=== PATIENT | male | born 1950 | race Caucasian/White ===

== ENCOUNTER 2024-04-20 11:45 | Emergency (ER) | payer MEDICARE, SELFPAY ==
--- NOTE | ~2024-04-20 | XR_ITS ---
EXAMINATION: XR HUMERUS, LEFT CLINICAL INFORMATION: pain s/p fall COMPARISON: None available. TECHNIQUE: AP and lateral views of the left humerus. FINDINGS: Comminuted, displaced, and mildly angulated mid diaphyseal fracture of the humerus. There is approximately 1.0 cm of override. There is approximately 1.0 cm of anteromedial displacement of the distal fracture fragment. There is mild dorsal angulation. There is soft tissue swelling about the fracture site. No subcutaneous gas seen. XR/XR humerus LT IMPRESSION: 1. Comminuted, displaced, mildly overriding, and mildly posteriorly angulated mid diaphyseal fracture of the humerus. Electronically signed by: Charan Pretty MD 04/20/2024 01:42 PM [facility]
--- NOTE | ~2024-04-20 | XR_ITS ---
EXAMINATION: XR SHOULDER, LEFT CLINICAL INFORMATION: fall COMPARISON: None available. TECHNIQUE: AP external rotation, Grashey, scapular Y, and axillary views of the left shoulder. FINDINGS: Normal bone mineralization. No fracture, dislocation, or suspicious bone lesion. Normal alignment. Mild degenerative arthritis glenohumeral joint. Moderate superior surface spurring of the AC joint. There is a downsloping lateral acromion. No undersurface spurring. The subacromial space is preserved. Remainder of the soft tissue and bony structures appear normal. XR/XR shoulder LT min 2V IMPRESSION: No acute findings left shoulder. Electronically signed by: Charan Pretty MD 04/20/2024 01:40 PM EST
[2024-04-20 12:01] VITALS: BP 148/63; PULSE 57; RESP 20; TEMP 36.7; O2SAT 98; BMI 26.4
--- NOTE | 2024-04-20 12:04 | ED_ITS ---
HPI - Fall General Chief Complaint: Fall Stated Complaint: Arm Injury Time Seen by Provider: 04/20/24 13:26 Source: patient Mode of arrival: ambulatory Limitations: no limitations History of Present Illness ED Provider: Dr. Austen Kendall HPI Narrative: 74-year-old male with no significant past medical history, has not seen a doctor in many years who presents emergency department for evaluation of slip and fall on ice with injury to his left upper extremity. Patient states that he landed hard on his left arm. He states that he was left arm was deformed and he was able to straighten it but it would not stay straight. The patient denied any head neck or chest injury. He was currently complaining of left arm only. Related Data Previous Rx's ?Medication ?Instructions ?Recorded morphine 15 mg immediate release 15 mg PO Q8H PRN pain #15 tabs 04/20/24 tablet Allergies Allergy/AdvReac Type Severity Reaction Status Date / Time No Known Allergies Allergy Verified 04/20/24 12:05 Review of Systems 2 Review of Systems: Yes all other systems are reviewed and are negative [facility] Past Medical History [facility] Narrative: Social history: He denies tobacco use. He drinks beer occasionally. He denies drug use. Social History Social History Advance Directives: No Advance Directives Information Provided: Yes Do you have a plan to hurt others: No Plan Physical Exam 2 Vital Signs: Vital Signs: Last Vital Signs Temp 98.1 F 04/20/24 15:59 Pulse 57 04/20/24 15:59 Resp 20 04/20/24 15:59 BP 148/63 H 04/20/24 15:59 Pulse Ox 98 04/20/24 15:59 O2 Del Method Room Air 04/20/24 15:59 BMI result Body Mass Index 26.4 Exam: General: Awake, alert in no distress Head: Normocephalic, atraumatic EENT: PERRL, Lids normal, sclera normal, conjunctiva normal, nose normal , ears normal, throat without erythema or exudates Neck: Supple, no adenopathy Lung: breath sounds symmetric, no wheezing, rales or rhonchi Chest: symmetric movement, nontender Heart: regular rate and rhythm, normal S1, S2 no murmurs or rubs Abdomen: soft, non-tender, nondistended, normal bowel sounds Back: no vertebral tenderness, no CVAT Extremities: Tenderness to left mid shaft of the femur, neurovascularly intact Neuro: Awake, alert, oriented, normal speech, cranial nerves intact, moves all extremities symmetrically Psych: Pleasant, cooperative Course Course Course Narrative: This is an RME: Additional HPI, ROS, PE not included below will be deferred to primary provider. RME assessment and note performed by: Rox Brown PA-C This is a [id number]-male, with no known medical problems, who presents emergency department complaints of left arm pain status post slip and fall which occurred just prior to arrival. No head strike or LOC. Patient with obvious bony deformity noted. He was starting radial pulse. Plan: Xray humerus and shoulder Medications Administered Discontinued Medications Generic Name Dose Route Start Last Admin Trade Name José Luis PRN Reason Stop Dose Admin Morphine Sulfate 4 mg 04/20/24 13:18 04/20/24 13:26 Morphine Sulfate 4 Mg/Ml Cartridge IVPUSH 04/20/24 13:19 4 mg ONCE ONE Administration Protocol Morphine Sulfate 4 mg 04/20/24 13:54 04/20/24 14:17 Morphine Sulfate 4 Mg/Ml Cartridge IVPUSH 04/20/24 13:55 4 mg ONCE STA Administration Protocol Ondansetron HCl 4 mg 04/20/24 13:18 04/20/24 13:26 Ondansetron Hcl 4 Mg/2 Ml Vial IVPUSH 04/20/24 13:19 4 mg ONCE ONE Administration Medical Decision Making Medical Decision Making [facility] Narrative: 74-year-old male with no significant past medical history, has not seen a doctor in many years who presents emergency department for evaluation of slip and fall on ice with injury to his left upper extremity. Patient was no other complaints. Vital signs were normal. Physical examination did reveal tenderness palpation of the left upper arm, extremities neurovascular intact Differential diagnosis: ?Includes but is not limited to left humerus fracture, left arm contusion Course: My interpretation patient's laboratory evaluation is as follows: WBC elevated 13,200, H&H was normal 14.9 and 43.2. Sodium was elevated 146. Glucose elevated 154. X-ray of the patient's left humerus revealed a comminuted displaced with mildly overriding and angulated mid shaft fracture. Left shoulder x-ray revealed no acute findings. I did discuss the patient's fracture over tiger text with the covering orthopedic physician program support assistant, Johnson Luis. He recommended placing the patient in a sling, pain management and follow up as an outpatient. Patient did receive 2 doses of morphine 4 mg IV with some improvement of his pain. He was advised to take Tylenol 1000 mg 3 times a day as needed for pain and for pain not relieved by Tylenol he was prescribed morphine 15 mg every 8 hours as needed. Patient was given printed and verbal instructions and discharged home. I did tell the patient that he had has a heart murmur that will need to be evaluated prior to any surgery and that he should mention this to the orthopedic providers. Admission/Observation Consideration of admission/observation: Escalation of care including admission/observation considered (Yes) Lab Data MDM Lab Attestation statement: I reviewed the patient's lab results. 04/20/24 13:16 04/20/24 13:16 Labs: Lab Results 04/20/24 Range/Units 13:16 WBC 13.2 H (4.8-10.8) X10*3/uL RBC 4.63 (4.60-5.80) X10*6/uL Hgb 14.9 (14.0-18.0) g/dl Hct 43.2 (42.0-52.0) % MCV 93.3 (80.0-98.0) fL MCH 32.2 (27.0-33.0) pg MCHC 34.5 (31.0-36.0) g/dl RDW 14.5 (11.0-16.0) % Plt Count 187 (160-400) X10*3/uL MPV 9.8 (9.4-12.4) fL Immature Gran % (Auto) 0.6 H (0.0-0.4) % Neut % (Auto) 84.0 H (45-73) % Lymph % (Auto) 8.2 L (20-40) % Blanco % (Auto) 5.8 (2-11) % Eos % (Auto) 1.1 (0-4) % Baso % (Auto) 0.3 (0-2) % Lymph # (Auto) 1.1 L (1.2-4.9) X10*3/uL Blanco # (Auto) 0.8 (0.1-1.2) X10*3/uL Eos # (Auto) 0.1 (0.0-0.4) X10*3/uL Baso # (Auto) 0.0 (0.0-0.2) X10*3/uL Abs Immat Gran (auto) 0.08 H (0.00-0.03) X10*3/uL Absolute Neuts (auto) 11.1 H (2.0-8.3) x10*3/uL Absolute Nucleated RBC 0.000 (0.0-0.012) X10*3/uL Nucleated RBC % (auto) 0.0 (0.0-0.2) /100WBC Sodium 146 H (135-145) mmol/L Potassium 3.9 (3.3-5.1) mmol/L Chloride 108 (96-108) mmol/L Carbon Dioxide 28 (22-29) mmol/L Anion Gap 14 (12-20) BUN 13 (9-16) mg/dL Creatinine 1.15 (0.5-1.4) mg/dL Estim Creat Clear Calc 54.5 Estimated GFR > 60 Random Glucose 154 H (60-115) mg/dL Calcium 9.2 (8.4-10.2) mg/dL Total Bilirubin 0.7 (0.0-1.0) mg/dL AST 30 (5-37) U/L ALT 26 (0-40) U/L Alkaline Phosphatase 56 (39-117) U/L Total Protein 7.5 (6.5-8.0) g/dL Albumin 4.3 (3.5-5.0) g/dL Radiology Impression Discussion of test interpretation with radiology: I have reviewed the radiologist's reading. Radiologist Impression: XR HUMERUS, LEFT CLINICAL INFORMATION: pain s/p fall COMPARISON: None available. TECHNIQUE: AP and lateral views of the left humerus. FINDINGS: Comminuted, displaced, and mildly angulated mid diaphyseal fracture of the humerus. There is approximately 1.0 cm of override. There is approximately 1.0 cm of anteromedial displacement of the distal fracture fragment. There is mild dorsal angulation. There is soft tissue swelling about the fracture site. No subcutaneous gas seen. XR/XR humerus LT IMPRESSION: 1. Comminuted, displaced, mildly overriding, and mildly posteriorly angulated mid diaphyseal fracture of the humerus. Electronically signed by: Charan Pretty MD 04/20/2024 01:42 PM ES Independent Historian Clinical information obtained from an independent historian. History obtained from or confirmed by: Spouse Prescription Management I considered prescription management with: Pain Medication (Morphine IR) Chronic Conditions Patient?s care impacted by: Other (Heart murmur) Discharge Plan Discharge Clinical Impression: Fall from slipping on ice, Closed left humeral fracture, Heart murmur Patient Disposition: Home, Self-Care Instructions: Arm Fracture in Adults (ED) Additional Instructions: You broke the need the humerus bone in your upper arm You were placed in a sling and strap. Keep this on as much as possible but you can take it off to change and to washout. Apply ice to your arm in the area of the broken bone to help reduce the pain and swelling, apply the ice for 15 minutes 4 to 6 times a day for the next 2-3 days. Take Tylenol (acetaminophen) 2 pills every 6 hours as needed for pain. For pain not relieved by Tylenol take morphine 15 mg pills, 1 pill every 6 hours as needed for pain. This medication will make you sleepy, do not drive or work while taking this medication. Morphine is a narcotic medication and can be addicting. If you are concerned about addiction you can ask the pharmacist for less pills or do not get this prescription filled. Call the orthopedic doctors office tomorrow to make a follow-up appointment within 1 week. Please return to the emergency department if your symptoms get worse or if your symptoms get worse or if you develop any symptoms that are concerning to you. Prescriptions: New morphine 15 mg tablet 15 mg PO Q8H PRN (Reason: pain) Qty: 15 0RF Rx Instructions: Partial Fill upon patient request. Referrals: Elvis White MD [Physician] - (Closed comminuted fracture mid shaft left humerus needs follow-up within 1 week. Patient was not have a primary care doctor in his not seen a doctor and I long time, on exam he does have a heart murmur that may need to be evaluated prior to any surgery.) Interventions: ED Discharge Assessment Last Done: 04/20/24 15:59 Discharge Date/Time: 04/20/24 15:59 Print Language: Estonian
[2024-04-20 13:21] LABS: MANUAL DIFF FLAG NO
[2024-04-20 13:23] LABS: Basophils Percent Auto 0.3 % (0-2); Eosinophils Absolute Auto 0.1 X10*3/uL (0.0-0.4); Eosinophils Percent Auto 1.1 % (0-4); Hematocrit 43.2 % (42.0-52.0); Hemoglobin 14.9 g/dl (14.0-18.0); Imm Gran Abs Auto 0.08 X10*3/uL (0.00-0.03); Imm Gran Pct Auto 0.6 % (0.0-0.4); Lymphocytes Absolute Auto 1.1 X10*3/uL (1.2-4.9); Lymphocytes Percent Auto 8.2 % (20-40); Mean Corpuscular HGB Conc 34.5 g/dl (31.0-36.0); Mean Corpuscular Hemoglobin 32.2 pg (27.0-33.0); Mean Corpuscular Volume 93.3 fL (80.0-98.0); Mean Platelet Volume 9.8 fL (9.4-12.4); Monocytes Absolute Auto 0.8 X10*3/uL (0.1-1.2); Monocytes Percent Auto 5.8 % (2-11); Neutrophils Absolute Auto 11.1 x10*3/uL (2.0-8.3); Platelet Count 187 X10*3/uL (160-400); Red Blood Count 4.63 X10*6/uL (4.60-5.80); Red Cell Distribution Width 14.5 % (11.0-16.0); White Blood Count 13.2 X10*3/uL (4.8-10.8)
[2024-04-20] MEDS: ondansetron HCL 4 MG/2 ML VIAL IVPUSH (13:26)
[2024-04-20] MEDS: Morphine Sulfate 4 MG/ML CARTRIDGE IVPUSH ×2 (13:26→14:17)
[2024-04-20 13:40] LABS: Alanine Aminotransferase 26 U/L (0-40); Albumin Level 4.3 g/dL (3.5-5.0); Alkaline Phosphatase 56 U/L (39-117); Anion Gap 14 (12-20); Aspartate Amino Transferase 30 U/L (5-37); Bilirubin Total 0.7 mg/dL (0.0-1.0); Blood Urea Nitrogen 13 mg/dL (9-16); Calcium 9.2 mg/dL (8.4-10.2); Carbon Dioxide 28 mmol/L (22-29); Chloride 108 mmol/L (96-108); Creatinine Clr Calc Pharmacy 54.5; Estimated Glomerular Filt Rate > 60; Glucose Random 154 mg/dL (60-115); Potassium 3.9 mmol/L (3.3-5.1); Sodium 146 mmol/L (135-145); Total Protein 7.5 g/dL (6.5-8.0)
[2024-04-20 15:59] VITALS: BP 148/63; PULSE 57; RESP 20; TEMP 36.7; O2SAT 98
== END 2024-04-20 15:59 | disposition home or self-care (01) ==
PROVIDERS: Emergency Provider Emergency Medicine Emergency Medical Services
DX: S42.352A Displaced comminuted fracture of shaft of humerus, left arm, initial encounter for closed fracture (principal); W00.0XXA Fall on same level due to ice and snow, initial encounter; Y93.9 Activity, unspecified; Y92.410 Unspecified street and highway as the place of occurrence of the external cause; Y99.9 Unspecified external cause status
CPT/HCPCS: 36415; 73030; 73060; 80053; 85025; 96374; 96375; 96376; 99283; 99284; J2270; J2405

== ENCOUNTER → 2024-04-20 12:07 | Outpatient (BNV) | payer MEDICARE, SELFPAY | PROVIDERS: Emergency Provider Emergency Medicine Emergency Medical Services; PCP Internal Medicine; Visit Provider Radiology Diagnostic Radiology | DX: S42.302A Unspecified fracture of shaft of humerus, left arm, initial encounter for closed fracture (principal); W19.XXXA Unspecified fall, initial encounter | CPT/HCPCS: 73030; 73060 ==

== ENCOUNTER 2024-04-28 15:05 | Outpatient (AMB) | payer MEDICARE, SELFPAY ==
--- NOTE | 2024-04-28 15:07 | A.OFFVIS_ITS ---
Vital Signs 04/28/24 15:20 Height 5 ft 8 in Weight 173 lb BMI 26.3 Intake Visit Reasons: FC-Closed left humeral fracture, DOI 04/20/24 Intake Note: Jhon is a 74 year old right hand dominant male who presents today for a fracture care visit. Patient reports that he slipped and fell on the left upper extremity on 04/20/24. [place] [facility] [place] where he was placed in a sling. Patient reports that he is having pain and swelling. He has bruising of the arm. He has been taking Morphine which has been helping his pain. He is also taking Ibuprofen and Tylenol PRN. He has some mild numbness and tingling. Allergies No Known Allergies Allergy (Verified 04/20/24 12:05) HPI HPI FC-Closed left humeral fracture, DOI 04/20/24: Details: Jhon is a 74 year old right hand dominant male who presents today for a fracture care visit. Patient reports that he slipped and fell on the left upper extremity on 04/20/24. He was [place] [facility] [place] where he was placed in a sling. Patient reports that he is having pain and swelling. He has bruising of the arm. He has been taking Morphine which has been helping his pain. He is also taking Ibuprofen and Tylenol PRN. He has some mild numbness and tingling. [facility] Surgical History (Updated 04/28/24 @ 15:23 by Trinh Bagley CMA) Hx of appendectomy Review of Systems Const All systems reviewed & are unremarkable except as noted in HPI and below Physical Exam Vital Signs: BMI result Body Mass Index 26.3 Extrem Other: Patient's left proximal arm significantly ecchymotic to inspection There is also noted to be a deformity in the humerus at the level of the fracture No erythema or other evidence of infection noted No lacerations, abrasions, open areas No evidence of infection Patient reports mild tenderness to palpation of the left humeral shaft at the level of the fracture Patient was able to flex and extend the right wrist and digits of the right hand fully and without difficulty Distal sensation intact Capillary refill brisk Office Procedures AMB Fracture Care Details: Left humeral shaft fracture Fracture Billing Code: Fracture Billing Code Results Reviewed Results Reviewed: X-rays obtained in the office today and independently reviewed by me, Johnson Toby PA-C, demonstrate displaced fracture of the left humeral shaft with similar alignment to previous x-rays taken in the emergency department. Assessment & Plan Assessment & Plan (1) Fracture of humeral shaft, right, closed: Code(s): S42.301A - Unspecified fracture of shaft of humerus, right arm, initial encounter for closed fracture Category: Medical Plan 1. Left humeral shaft fracture Date of injury 04/20/2024 Patient is educated about this injury Patient is educated about the typical recovery course At this time, patient was placed into a thermal molded proximal humerus brace to be worn at all times except for bathing Patient was also educated he should continue using the splint for comfort and while out and about Patient is educated that while at rest, and wearing the proximal humerus brace, he can allow the arm to hang down Patient was educated to avoid any active motion away from the body with the left shoulder Patient was educated to continue working on range of motion of the left elbow, wrist, hand, to prevent stiffness Patient was amenable to this plan Patient will follow-up in 2-3 weeks with repeat x-rays for reassessment, sooner with any acute concerns Orders: Orders XR humerus LT 04/28/24 S42.309A - Unspecified fracture of shaft of humerus, u nspecified arm, initial encounter for closed fracture Coding Level of Care Code New Pt Level 3 (38810) Diagnoses Fracture of humeral shaft, right, closed S42.301A CPT Codes Fracture Care - Fracture Billing Code: Fracture Billing Code ([id number])
[2024-04-28 15:20] VITALS: BMI 26.3
== END 2024-04-28 15:47 | disposition home or self-care (01) ==
DX: S42.301A Unspecified fracture of shaft of humerus, right arm, initial encounter for closed fracture (principal)
CPT/HCPCS: 99203

== ENCOUNTER → 2024-04-28 15:05 | Outpatient (BNVA) | payer MEDICARE, SELFPAY | DX: S42.301A Unspecified fracture of shaft of humerus, right arm, initial encounter for closed fracture (principal) | CPT/HCPCS: 24500; 99202 ==

== ENCOUNTER → 2024-04-28 15:10 | Outpatient (BNV) | payer MEDICARE, SELFPAY | PROVIDERS: Visit Provider Radiology Diagnostic Radiology | DX: S43.302A Subluxation of unspecified parts of left shoulder girdle, initial encounter (principal) | CPT/HCPCS: 73060 ==

== ENCOUNTER 2024-04-29 10:20 | Outpatient (REF) | payer MEDICARE, SELFPAY ==
--- NOTE | ~2024-04-29 | XR_ITS ---
EXAMINATION: XR HUMERUS, LEFT CLINICAL INFORMATION: S42.309A - Unspecified fracture of shaft of humerus, unspecified arm, in... COMPARISON: 04/20/2024. TECHNIQUE: AP and lateral views of the left humerus. FINDINGS: Comminuted, displaced, and minimally angulated mid diaphyseal fracture of the humerus. Previously seen overriding has resolved on the current radiograph. There is no overriding. There is approximately 1 shaft width of stable anteromedial displacement of the distal fracture fragment, minimally increased although probably projectional. There is trace anteromedial angulation. Early blunting of the fracture margins with subtle periosteal bone formation. Findings indicate early healing. There is soft tissue swelling about the fracture site. No subcutaneous gas seen. XR/XR humerus LT IMPRESSION: 1. Comminuted fracture of the mid diaphysis of the humerus, with evidence of very early healing bone changes. Mildly increased displacement is probably projectional. There is no persistent override. There is trace anteromedial angulation. Electronically signed by: Charan Pretty MD 04/29/2024 08:13 AM [facility]
== END 2024-04-29 10:21 | disposition home or self-care (01) ==
LOC: HO.HOSX 10:20
DX: S42.302D Unspecified fracture of shaft of humerus, left arm, subsequent encounter for fracture with routine healing (principal)
CPT/HCPCS: 73060

== ENCOUNTER 2024-05-14 09:08 | Outpatient (REF) | payer MEDICARE, SELFPAY ==
--- NOTE | ~2024-05-14 | XR_ITS ---
CLINICAL HISTORY: S42.309A - Unspecified fracture of shaft of humerus, unspecified arm, in... 2 view left humerus Comparison: DX/[place]/SR - XR HUMERUS LT - 04/28/24 15:10 EST Findings: There is a displaced mid humeral shaft fracture now with early callus formation. No significant arthritic change. No radiopaque foreign body. IMPRESSION: There is a displaced mid humeral shaft fracture now with early callus formation. This document has been electronically signed by: Ant Guerrero MD on 05/15/2024 09:15:21
== END 2024-05-14 09:09 | disposition home or self-care (01) ==
LOC: HO.HOSX 09:08
DX: S42.302D Unspecified fracture of shaft of humerus, left arm, subsequent encounter for fracture with routine healing (principal)
CPT/HCPCS: 73060; 99212

== ENCOUNTER 2024-05-14 13:17 | Outpatient (AMB) | payer MEDICARE, SELFPAY ==
[2024-05-14 13:22] VITALS: BMI 26.3
--- NOTE | 2024-05-14 13:22 | A.OFFVIS_ITS ---
Vital Signs 05/14/24 13:22 Height 5 ft 8 in Weight 173 lb BMI 26.3 Handedness Right Intake Visit Reasons: OV- left humeral fracture, DOI 04/20/24 Intake Note: Jhon is a 74 year old right hand dominant male who presents today for a follow up of his fracture of right humeral shaft s/p fall DOI: 04/20/24. Patient was placed into a thermal molded proximal humerus brace to be worn at all times except for bathing. He was also educated that he should continue using the splint for comfort and while out and about. At rest patient was allowed to let arm hang down. He expresses he has not been allowing his arm to hang due to pain. He states he has the most pain at night time and has not been able to sleep well due to this fracture. He takes ibuprofen at night for some relief but helps mildly. Allergies No Known Allergies Allergy (Verified 05/14/24 13:28) HPI HPI OV- left humeral fracture, DOI 04/20/24: Details: Jhon is a 74 year old right hand dominant male who presents today for a follow up of his fracture of right humeral shaft s/p fall DOI: 04/20/24. Patient was placed into a thermal molded proximal humerus brace to be worn at all times except for bathing. He was also educated that he should continue using the splint for comfort and while out and about. At rest patient was allowed to let arm hang down. He expresses he has not been allowing his arm to hang due to pain. He states he has the most pain at night time and has not been able to sleep well due to this fracture. He takes ibuprofen at night for some relief but helps mildly. [facility] Surgical History (Updated 04/28/24 @ 15:23 by Trinh Bagley CMA) Hx of appendectomy Review of Systems Const All systems reviewed & are unremarkable except as noted in HPI and below Physical Exam Vital Signs: BMI result Body Mass Index 26.3 Extrem Other: Patient's left proximal arm significantly ecchymotic to inspection There is also noted to be a deformity in the humerus at the level of the fracture No erythema or other evidence of infection noted No lacerations, abrasions, open areas No evidence of infection Patient reports mild tenderness to palpation of the left humeral shaft at the level of the fracture Patient was able to flex and extend the right wrist and digits of the right hand fully and without difficulty Distal sensation intact Capillary refill brisk Results Reviewed Results Reviewed: X-rays obtained in the office today and independently reviewed by me, Johnson Luis PA-C, demonstrate displaced fracture of the left humeral shaft with similar alignment to previous x-rays Assessment & Plan Assessment & Plan (1) Fracture of humeral shaft, right, closed: Code(s): S42.301A - Unspecified fracture of shaft of humerus, right arm, initial encounter for closed fracture Category: Medical Plan 1. Left humeral shaft fracture Date of injury 04/20/2024 Patient is educated about this injury Patient is educated about the typical recovery course At this time, patient was placed into a thermal molded proximal humerus brace to be worn at all times except for bathing Patient was also educated he should continue using the splint for comfort and w hile out and about Patient is educated that while at rest, and wearing the proximal humerus brace, he can allow the arm to hang down Patient was educated to avoid any active motion away from the body with the left shoulder Patient was educated to continue working on range of motion of the left elbow, wrist, hand, to prevent stiffness Patient was amenable to this plan Patient will follow-up in 3-4 weeks with repeat x-rays for reassessment, sooner with any acute concerns Orders: Orders XR humerus RT 05/14/24 S42.301A - Unspecified fracture of shaft of humerus, right arm, initial encounter for closed fracture XR humerus LT 05/14/24 S42.309A - Unspecified fracture of shaft of humerus, unspecified arm, initial encounter for closed fracture Coding Level of Care Code Global (09183) Diagnoses Fracture of humeral shaft, right, closed S42.301A
== END 2024-05-14 14:16 | disposition home or self-care (01) ==
LOC: HO.HOS 13:17
DX: S42.301A Unspecified fracture of shaft of humerus, right arm, initial encounter for closed fracture (principal)
CPT/HCPCS: 99213

== ENCOUNTER → 2024-05-14 13:22 | Outpatient (BNV) | payer MEDICARE, SELFPAY | PROVIDERS: Visit Provider Radiology Diagnostic Radiology | DX: S42.302A Unspecified fracture of shaft of humerus, left arm, initial encounter for closed fracture (principal) | CPT/HCPCS: 73060 ==

== ENCOUNTER 2024-05-15 08:20 | Outpatient (REF) | payer MEDICARE, SELFPAY | END 2024-05-15 08:21 | disposition home or self-care (01) | LOC: HO.HOSX 08:20 | DX: Z13.89 Encounter for screening for other disorder (principal) ==

== ENCOUNTER 2024-06-04 10:39 | Outpatient (AMB) | payer MEDICARE, SELFPAY ==
--- NOTE | 2024-06-04 10:54 | MHC.OFFVIS ---
Vital Signs 06/04/24 10:55 Height 5 ft 8 in Weight 173 lb BMI 26.3 Handedness Right Intake Visit Reasons: OV- left humeral fracture, DOI 04/20/24 Intake Note: Jhon is a 74 year old right hand dominant male who presents today for a follow up vist for his fracture of humeral shaft, left, closed DOI: 04/20/24. Patient reports he uses his arm however he does not work specifically on ROM exercises. He says his entire left arm keeps swelling. He says it is hard to the touch. He says a couple of days ago he heard a pop in the left arm however had no pain. Denies numbness or tingling. Allergies No Known Allergies Allergy (Verified 06/04/24 10:55) HPI HPI OV- left humeral fracture, DOI 04/20/24: Details: Jhon is a 74 year old right hand dominant male who presents today for a follow up vist for his fracture of humeral shaft, left, closed DOI: 04/20/24. Patient reports he uses his arm however he does not work specifically on ROM exercises. He says his entire left arm keeps swelling. He says it is hard to the touch. He says a couple of days ago he heard a pop in the left arm however had no pain. Denies numbness or tingling. PFSH Surgical History (Updated 04/28/24 @ 15:23 by Trinh Bagley CMA) Hx of appendectomy Social History (Updated 06/04/24 @ 10:56 by BRANDI Proctor) Alcohol intake: current Alcohol type: beer Patient Tobacco Use Status: Never used Tobacco Current occupational status: retired Current occupation: right handed Review of Systems Const All systems reviewed & are unremarkable except as noted in HPI and below Physical Exam Vital Signs: BMI result Body Mass Index 26.3 Extrem Other: Patient's left proximal arm significantly ecchymotic to inspection There is also noted to be a deformity in the humerus at the level of the fracture There is edema of the right hand No erythema or other evidence of infection noted No lacerations, abrasions, open areas No evidence of infection Patient reports no tenderness to palpation of the left humeral shaft at the level of the fracture Patient was able to flex and extend the right wrist and digits of the right hand fully and without difficulty Distal sensation intact Capillary refill brisk Results Reviewed Results Reviewed: X-rays obtained in the office today and independently reviewed by me, Johnson Luis PA-C, demonstrate displaced fracture of the left humeral shaft with similar alignment to previous x-rays and evidence of interval bony healing Assessment & Plan Assessment & Plan (1) Fracture of humeral shaft, right, closed: Code(s): S42.301A - Unspecified fracture of shaft of humerus, right arm, initial encounter for closed fracture Category: Medical Plan 1. Left humeral shaft fracture Date of injury 04/20/2024 Patient is educated about this injury Patient is educated about the typical recovery course Patient was educated he should continue using the splint for comfort and while out and about Patient is educated that while at rest, and wearing the proximal humerus brace, he can allow the arm to hang down Patient was educated to avoid any active motion away from the body with the left shoulder Patient was educated to continue working on range of motion of the left elbow, wrist, hand, to prevent stiffness Patient was amenable to this plan Patient will follow-up in 4-5 weeks with repeat x-rays for reassessment, sooner with any acute concerns Orders: Orders XR humerus LT Today S42.309A - Unspecified fracture of shaft of humerus, unspecified arm, initial encounter for closed fracture Coding Level of Care Code Global (40069) Diagnoses Fracture of humeral shaft, right, closed S42.301A
[2024-06-04 10:55] VITALS: BMI 26.3
== END 2024-06-04 11:28 | disposition home or self-care (01) ==
LOC: HO.HOS 10:40
DX: S42.301A Unspecified fracture of shaft of humerus, right arm, initial encounter for closed fracture (principal)
CPT/HCPCS: 99213

== ENCOUNTER 2024-06-04 10:39 | Outpatient (REF) | payer MEDICARE, SELFPAY ==
--- NOTE | ~2024-06-04 | XR_ITS ---
EXAMINATION: XR HUMERUS LEFT HISTORY: S42.309A - Unspecified fracture of shaft of humerus, unspecified arm COMPARISON: Comparison is made with the prior examination dated 05/14/2024. FINDINGS: AP and lateral views of the left humerus are submitted. Osseous mineralization is normal. Again seen is a displaced fracture of the midshaft of the humerus. Callus formation is seen about the fracture site, consistent with healing. The visualized shoulder and elbow joint spaces are preserved. The soft tissues are unremarkable. XR/XR humerus LT IMPRESSION: Healing displaced fracture of the midshaft of the humerus. Electronically signed by: Wlat Solis MD 06/07/2024 08:35 AM EDT
== END 2024-06-04 10:40 | disposition home or self-care (01) ==
LOC: HO.HOSX 10:39
DX: S42.302A Unspecified fracture of shaft of humerus, left arm, initial encounter for closed fracture (principal); X58.XXXA Exposure to other specified factors, initial encounter; Y93.9 Activity, unspecified; Y92.9 Unspecified place or not applicable; Y99.9 Unspecified external cause status; M21.922 Unspecified acquired deformity of left upper arm; R60.9 Edema, unspecified
CPT/HCPCS: 73060; 99212

== ENCOUNTER → 2024-06-04 10:45 | Outpatient (BNV) | payer MEDICARE, SELFPAY | PROVIDERS: Visit Provider Radiology Diagnostic Radiology | DX: S42.302D Unspecified fracture of shaft of humerus, left arm, subsequent encounter for fracture with routine healing (principal) | CPT/HCPCS: 73060 ==

== ENCOUNTER 2024-06-05 08:12 | Outpatient (REF) | payer MEDICARE, SELFPAY | END 2024-06-05 08:13 | disposition home or self-care (01) | LOC: HO.HOSX 08:12 | DX: Z13.89 Encounter for screening for other disorder (principal) ==

== ENCOUNTER 2024-07-09 13:04 | Outpatient (AMB) | payer MEDICARE, SELFPAY ==
--- NOTE | 2024-07-09 13:21 | MHC.OFFVIS ---
Vital Signs 07/09/24 13:22 Height 5 ft 8 in Weight 173 lb BMI 26.3 Intake Visit Reasons: OV- left humeral fracture, DOI 04/20/24 Intake Note: Jhon is a 74 year old right hand dominant male who presents today for a follow up visit for his fracture of humeral shaft, left, closed DOI: 04/20/24. Patient reports that he is doing well, he has some mild discomfort mostly when the brace is adjusted too tight He has not been wearing a sling. Allergies No Known Allergies Allergy (Verified 06/04/24 10:55) HPI HPI OV- left humeral fracture, DOI 04/20/24: Details: Jhon is a 74 year old right hand dominant male who presents today for a follow up visit for his fracture of humeral shaft, left, closed DOI: 04/20/24. Patient reports that he is doing well, he has some mild discomfort mostly when the brace is adjusted too tight He has not been wearing a sling. PFSH Surgical History (Updated 04/28/24 @ 15:23 by Trinh Bagley CMA) Hx of appendectomy Social History (Updated 06/04/24 @ 10:56 by BRANDI Proctor) Alcohol intake: current Alcohol type: beer Patient Tobacco Use Status: Never used Tobacco Current occupational status: retired Current occupation: right handed Review of Systems Const All systems reviewed & are unremarkable except as noted in HPI and below Physical Exam Vital Signs: BMI result Body Mass Index 26.3 Extrem Other: Patient's left proximal arm significantly ecchymotic to inspection There is also noted to be a deformity in the humerus at the level of the fracture There is very mild edema of the right hand No erythema or other evidence of infection noted No lacerations, abrasions, open areas No evidence of infection Patient reports no tenderness to palpation of the left humeral shaft at the level of the fracture Patient was able to flex and extend the right wrist and digits of the right hand fully and without difficulty Distal sensation intact Capillary refill brisk Results Reviewed Results Reviewed: X-rays obtained in the office today and independently reviewed by me, Johnson Luis PA-C, demonstrate displaced fracture of the left humeral shaft with similar alignment to previous x-rays and evidence of interval bony healing Assessment & Plan Assessment & Plan (1) Fracture of humeral shaft, right, closed: Code(s): S42.301A - Unspecified fracture of shaft of humerus, right arm, initial encounter for closed fracture Category: Medical Plan 1. Left humeral shaft fracture Date of injury 04/20/2024 Patient is educated about this injury Patient is educated about the typical recovery course Patient was educated he should continue using the splint for comfort and while out and about Discontinue use of proximal humerus brace Patient was educated to avoid any active motion away from the body with the left shoulder Referred to occupational therapy for gentle passive range of motion and pendulums of the right shoulder, as well as gentle range of motion of the right elbow, wrist, hand Patient was educated to continue working on range of motion of the left elbow, wrist, hand, to prevent stiffness Patient was amenable to this plan Patient will follow-up in 4-6 weeks with repeat x-rays for reassessment, sooner with any acute concerns Orders: Orders XR humerus LT Today S42.309A - Unspecified fracture of shaft of humerus, unspecified arm, initial encounter for closed fracture Coding Level of Care Code Global (44284) Diagnoses Fracture of humeral shaft, right, closed S42.301A
[2024-07-09 13:22] VITALS: BMI 26.3
== END 2024-07-09 13:52 | disposition home or self-care (01) ==
LOC: HO.HOS 13:04
DX: S42.301D Unspecified fracture of shaft of humerus, right arm, subsequent encounter for fracture with routine healing (principal)
CPT/HCPCS: 99213

== ENCOUNTER 2024-07-09 13:08 | Outpatient (REF) | payer MEDICARE, SELFPAY ==
--- NOTE | ~2024-07-09 | XR_ITS ---
EXAMINATION: XR HUMERUS LEFT HISTORY: S42.309A - Unspecified fracture of shaft of humerus, unspecified arm, in... COMPARISON: Comparison is made with the prior examination dated 06/04/2024. FINDINGS: AP and lateral views of the left humerus are submitted. Osseous mineralization is normal. Again seen is a displaced fracture of the midshaft of the humerus. There is greater callus formation seen consistent with healing. The fracture line remains visible. An additional fracture line is seen at the proximal humeral metadiaphysis is nondisplaced and not significantly changed since 04/20/2024. The visualized shoulder and elbow joint spaces are preserved. The soft tissues are unremarkable. XR/XR humerus LT IMPRESSION: 1. Continued healing of the displaced fracture of the midshaft of the humerus. 2. An additional fracture line is seen involving the proximal humeral metadiaphysis which is not significantly changed from 04/20/2024. Electronically signed by: Walt Solis MD 07/09/2024 02:07 PM EDT
== END 2024-07-09 13:09 | disposition home or self-care (01) ==
LOC: HO.HOSX 13:08
DX: S42.302A Unspecified fracture of shaft of humerus, left arm, initial encounter for closed fracture (principal)
CPT/HCPCS: 73060; 99212

== ENCOUNTER → 2024-07-09 13:10 | Outpatient (BNV) | payer MEDICARE, SELFPAY | PROVIDERS: Visit Provider Radiology Diagnostic Radiology | DX: S42.322D Displaced transverse fracture of shaft of humerus, left arm, subsequent encounter for fracture with routine healing (principal) | CPT/HCPCS: 73060 ==

== ENCOUNTER 2024-07-10 10:02 | Outpatient (REF) | payer MEDICARE, SELFPAY | END 2024-07-10 10:03 | disposition home or self-care (01) | LOC: HO.HOSX 10:02 | DX: Z13.89 Encounter for screening for other disorder (principal) ==

== ENCOUNTER 2024-08-20 08:41 | Outpatient (REF) | payer MEDICARE, SELFPAY ==
--- NOTE | ~2024-08-20 | XR_ITS ---
CLINICAL HISTORY: S42.309A - Unspecified fracture of shaft of humerus, unspecified arm, in... 2 view left humerus Comparison: 07/09/2024 Findings: There is persistence of the mid humeral fracture line with callus formation consistent with healing response. The exam otherwise unchanged IMPRESSION: 1. Healing mid humeral fracture This document has been electronically signed by: William Gilliam MD on 08/21/2024 08:46:41
== END 2024-08-20 08:42 | disposition home or self-care (01) ==
LOC: HO.HOSX 08:41
DX: S42.302A Unspecified fracture of shaft of humerus, left arm, initial encounter for closed fracture (principal); X58.XXXA Exposure to other specified factors, initial encounter; Y93.9 Activity, unspecified; Y92.9 Unspecified place or not applicable; Y99.9 Unspecified external cause status
CPT/HCPCS: 73060; 99212

== ENCOUNTER 2024-08-20 13:21 | Outpatient (AMB) | payer MEDICARE, SELFPAY ==
--- NOTE | 2024-08-20 13:24 | MHC.OFFVIS ---
Vital Signs 08/20/24 13:43 Handedness Right Intake Visit Reasons: OV- left humeral fracture, DOI 04/20/24-w/xray Intake Note: Jhon is a 74 year old right hand dominant male who presents today for a follow up visit for his fracture of humeral shaft, left, closed DOI: 04/20/24. Patient has been attending therapy and reports he feels slow improvement. He is unable to make a full closed fist with his left hand. He says he feel something in the left arm or shoulder is stopping him from being able to put his hand up against his face. His partner states he has been complaining of sharp pains in the left shoulder. Denies numbness and tingling. Allergies No Known Allergies Allergy (Verified 08/20/24 13:42) HPI HPI OV- left humeral fracture, DOI 04/20/24-w/xray: Details: Jhon is a 74 year old right hand dominant male who presents today for a follow up visit for his fracture of humeral shaft, left, closed DOI: 04/20/24. Patient has been attending therapy and reports he feels slow improvement. He is unable to make a full closed fist with his left hand. He says he feel something in the left arm or shoulder is stopping him from being able to put his hand up against his face. His partner states he has been complaining of sharp pains in the left shoulder. Denies numbness and tingling. [facility] Surgical History (Updated 04/28/24 @ 15:23 by Trinh Bagley CMA) Hx of appendectomy Social History Alcohol intake: current Alcohol type: beer Patient Tobacco Use Status: Never used Tobacco Current occupational status: retired Current occupation: right handed Review of Systems Const All systems reviewed & are unremarkable except as noted in HPI and below Physical Exam Extrem Other: Patient's left proximal arm significantly ecchymotic to inspection There is also noted to be a deformity in the humerus at the level of the fracture There is very mild edema of the right hand No erythema or other evidence of infection noted No lacerations, abrasions, open areas No evidence of infection Patient reports no tenderness to palpation of the left humeral shaft at the level of the fracture Patient was able to flex and extend the right wrist and digits of the right hand fully and without difficulty Distal sensation intact Capillary refill brisk Results Reviewed Results Reviewed: X-rays obtained in the office today and independently reviewed by me, Johnson Luis PA-C, demonstrate displaced fracture of the left humeral shaft with similar alignment to previous x-rays and evidence of interval bony healing Assessment & Plan Assessment & Plan (1) Fracture of humeral shaft, right, closed: Code(s): S42.301A - Unspecified fracture of shaft of humerus, right arm, initial encounter for closed fracture Category: Medical Plan 1. Left humeral shaft fracture Date of injury 04/20/2024 Patient is educated about this injury Patient is educated about the typical recovery course Patient was educated he should continue using the splint for comfort and while out and about Discontinue use of proximal humerus brace Patient was educated to avoid any active motion away from the body with the left shoulder Referred to occupational therapy for gentle passive range of motion and pendulums of the right shoulder, as well as gentle range of motion of the right elbow, wrist, hand Patient was educated to continue working on range of motion of the left elbow, wrist, hand, to prevent stiffness Patient was amenable to this plan Patient will follow-up in 6-8 weeks with repeat x-rays for reassessment, sooner with any acute concerns Orders: Orders XR humerus LT Today S42.309A - Unspecified fracture of shaft of humerus, unspecified arm, initial encounter for closed fracture Coding Level of Care Code Est Pt Level 3 (16707) Diagnoses Fracture of humeral shaft, right, closed S42.301A
== END 2024-08-20 13:55 | disposition home or self-care (01) ==
LOC: HO.HOS 13:22
DX: S42.302A Unspecified fracture of shaft of humerus, left arm, initial encounter for closed fracture (principal)
CPT/HCPCS: 99213

== ENCOUNTER → 2024-08-20 13:27 | Outpatient (BNV) | payer MEDICARE, SELFPAY | PROVIDERS: Visit Provider Specialist | DX: S42.302D Unspecified fracture of shaft of humerus, left arm, subsequent encounter for fracture with routine healing (principal) | CPT/HCPCS: 73060 ==

== ENCOUNTER 2024-08-26 15:28 | Outpatient (RCR) | payer MEDICARE, SELFPAY ==
--- NOTE | 2024-07-16 15:36 | MHC.OT.EP ---
[address] [phone] Occupational Therapy Plan of Care Patient Name: Jhon Sandhu Date of Evaluation: 07/16/24 Diagnosis: Fx of L humeral shaft Pain Location: Pain Score: Pain Scale Used: Aggravating Factors: Alleviating Factors: ibuprofen / tylenol helps Assessment: Pt is a 74 yr old R hand dominant male who fell and fractured the shaft of his L humerus on 04/20/24 when he fell on the ice walking to the mailbox. Pt would. He had a follow up on 07/09 and had an X-ray which showed proper healing of his UE. He had a follow up w/ the PA on 07/09. Pt presents today w/ minimal and painful ROM of his L UE and he is unable to make a fist mostly due to edema in his hand. Pt would benefit from skilled OT therapy to decrease pain, edema , and increase AROM, strength, and functional use of his L UE Frequency and Duration: The patient will be seen Short Term Goals: Pt will have 150 of pain free elbow flexion Pt will have pain free 110 of shoulder flexion Pt will make a composite fist Residential Goals: Pt will have full pain free ROM of his elbow Pt will Return to driving and use his L UE W/ out difficulty Pt will have 170 of pain free shoulder flexion Treatment Plan: Therapeutic Exercise Therapeutic Activity Home Exercise Program Patient Education Edema Control ADL Training Ultrasound Fluidotherapy MHP Cold Packs Soft Tissue Mobilization Kinesiotaping Electronically Signed By: Elva Lee OTR/L Please Sign and return to therapist. Thank you once again for your referral.
--- NOTE | 2024-08-31 08:26 | MHC.OT.DC ---
[address] [phone] F: [phone] Occupational Therapy Discharge Note Patient Name: Jhon Sandhu Provider: Johnson Luis Diagnosis: Fx of L humeral shaft Date of Surgery: Date of Evaluation: 07/16/24 Date of Discharge: Treatments to Date: 11 Cancellations to Date: No Shows to Date: Discharge Status: Improved Function Independent with HEP Discharge Summary: Pt has made great gains towards his LTG's ; he has made great progress and is OK to be d/charged today w/ a HEP. Pt was educated on the importance of being compliant w/ his HEP (has not been the case since DOI) in order to reach his LTG's Electronically Signed By: Elva Lee OTR/L Reviewed/agree with student documentation: Therapist: Please Sign and return to therapist, thank you for your referral.
== END 2024-08-31 08:26 | disposition home or self-care (01) ==
LOC: HO.OT 15:28
DX: S42.301D Unspecified fracture of shaft of humerus, right arm, subsequent encounter for fracture with routine healing (principal)
CPT/HCPCS: 97110; 97140; 97166; 97535

== ENCOUNTER 2024-10-16 10:41 | Outpatient (REF) | payer MEDICARE, SELFPAY | END 2024-10-16 10:42 | disposition home or self-care (01) | LOC: HO.HOSX 10:41 | DX: Z13.89 Encounter for screening for other disorder (principal) ==

== ENCOUNTER 2024-12-29 13:55 | Emergency (ER) | payer MEDICARE, SELFPAY ==
[2024-12-29 14:08] VITALS: BP 187/80; PULSE 79; RESP 18; TEMP 36.8; O2SAT 98; BMI 27.4
--- NOTE | 2024-12-29 14:08 | ED_ITS ---
[facility] - General Adult General Chief complaint: Skin/Abscess/Foreign Body Stated complaint: bee sting? Time Seen by Provider: 12/29/24 14:09 Source: patient Mode of arrival: ambulatory Limitations: no limitations History of Present Illness ED Provider: Dr. Ware [facility] narrative: Right leg redness on the lateral aspect. Sustain possible insect bite versus staying a couple of days ago. Increased swelling. Increased redness up his calf. No fever. Not diabetic. Related Data Home Medications ?Medication ?Instructions ?Recorded ?Confirmed ibuprofen 200 mg capsule 400 mg PO Q8H PRN 05/14/24 Previous Rx's ?Medication ?Instructions ?Recorded cephalexin 500 mg capsule 500 mg PO Q8H #21 caps 12/29 doxycycline hyclate 100 mg capsule 100 mg PO BID 7 day s #14 caps 12/29/24 Allergies Allergy/AdvReac Type Severity Reaction Status Date / Time No Known Allergies Allergy Verified 12/29/24 14:12 Review of Systems Review of Systems: Pertinent review of systems as mentioned in HPI. All other system otherwise negative. [facility] Past Medical History [facility] Narrative: Medical history as mentioned in [facility] Surgical History (Updated 04/28/24 @ 15:23 by Trinh Bagley CMA) Hx of appendectomy Social History Social History Alcohol intake: current Alcohol type: beer Patient Tobacco Use Status: Never used Tobacco Advance Directives: Yes Advance Directives on File: Yes Advance Directives Date on File: 04/20/24 Current occupational status: retired Current occupation: right handed Physical Exam ED Exam Exam: General: Pleasant, no distress, interacting appropriately Head: Normacephalic, atraumatic ENT: oral mucosa moist, neck supple, no tracheal deviation Extremities: Redness over the lateral ankle area. Appear to be streaking lymphangitis no obvious stinger appreciated on exam on wound Neurological: Awake and alert, no facial droop noted Skin: Warm and dry Psychiatric: Appropriate mood and thoughts Vital Signs: Vital Signs - 24 hr 12/29/24 14:08 12/29/24 14:54 Temperature 98.2 F 98.2 F Pulse Rate 79 79 Respiratory Rate 18 18 Blood Pressure 187/80 H 187/80 H Pulse Oximetry 98 98 Oxygen Delivery Method Room Air Room Air BMI result Body Mass Index 27.4 Medical Decision Making Medical Decision Making MDM Narrative: 74-year-old male presented hospital today for redness of the right foot area. The patient stated that he was in an area where he may have got stung or bit by an insect. This happened 2 days ago. He has not complain of any. He noticed that this redness is increasing and spreading. Therefore he presents to the ER re-evaluation. On evaluation does appear to be cellulitis. No crepitus changes appreciated on exam. We will plan to discharge patient with Keflex and doxycycline. Podiatry clinic follow up will be provided the patient. Differential Diagnosis Differential Diagnoses: The differential diagnosis associated with the presentation includes Cellulitis, necrotizing fasciitis, wound, bug bite Discharge Plan Discharge Clinical Impression: Cellulitis Qualifiers: Site of cellulitis: extremity Site of cellulitis of extremity: lower extremity Laterality: right Qualified Code(s): L03.115 - Cellulitis of right lower limb Patient Disposition: Home, Self-Care Instructions: Cellulitis (ED) Prescriptions: New cephalexin 500 mg capsule 500 mg PO Q8H Qty: 21 0RF doxycycline hyclate 100 mg capsule 100 mg PO BID 7 Days Qty: 14 0RF No Action ibuprofen 200 mg capsule 400 mg PO Q8H PRN Referrals: [facility] Podiatry [Provider Group, Podiatry] Interventions: ED Discharge Assessment Last Done: 12/29/24 14:54 Discharge Date/Time: 12/29/24 14:55 Print Language: Moldovan
[2024-12-29 14:54] VITALS: BP 187/80; PULSE 79; RESP 18; TEMP 36.8; O2SAT 98
== END 2024-12-29 14:55 | disposition home or self-care (01) ==
PROVIDERS: Emergency Provider Student in an Organized Health Care Education/Training Program
DX: L03.115 Cellulitis of right lower limb (principal)
CPT/HCPCS: 99282; 99283

== ENCOUNTER 2025-01-03 14:37 | Outpatient (AMB) | payer MEDICARE, SELFPAY ==
--- NOTE | 2025-01-03 14:48 | A.OFFVIS_ITS ---
Vital Signs 01/03/25 14:49 Height 5 ft 8 in Weight 180 lb BMI 27.4 Intake Visit Reasons: Cellulitis in Right Foot - ED Discharge 12/29 Intake Note: Jhon is a 74 year old male who presents today as a new patient for an evaluation of his right foot cellulites. Patient reports the cellulites has been going on since 12/25/24 and he was seen at the ED where he was prescribed cephalexin and doxycycline. Patient reports this his cellulites has improved since taking the medication but has not fully healed. Patient has concerns if his cellulites will flare up when he completes his medication tomorrow. Allergies No Known Allergies Allergy (Verified 01/03/25 14:49) HPI HPI Cellulitis in Right Foot - ED Discharge 12/29: Details: 74-year-old male no past medical history presents for initial evaluation of right foot and ankle infection. The patient states that he first noticed a white spot on the side of his ankle on 12/25, after walking barefoot outdoors. He was seen at [facility] ER on 12/29 and was discharged on Keflex and doxycycline which the patient will be completing my tomorrow. He notes that the redness in his leg has subsided now to the level of the foot and ankle however he still has significant swelling, red discoloration to his foot, and pain to his big toe joint. Patient denies N/V/F/C/SOB/CP. [facility] Surgical History (Updated 04/28/24 @ 15:23 by Trinh Bagley CMA) Hx of appendectomy Social History Alcohol intake: current Alcohol type: beer Patient Tobacco Use Status: Never used Tobacco Advance Directives Date on File: 04/20/24 Current occupational status: retired Current occupation: right handed Review of Systems Const All systems reviewed & are unremarkable except as noted in HPI and below Physical Exam Vital Signs: BMI result Body Mass Index 27.4 Extrem Other: *Bilateral Lower Extremity Focused Exam Vascular: DP/PT 2/4, CFT<3s to all digits, mild increased warmth to the right foot and 1st Metatarsal-phalangeal joint, +1 pitting right foot and ankle edema. Derm: Erythema to the dorsal right foot from the level of the distal lateral ankle to the base of the digits. Mild discoloration to right medial ankle and arch. Neuro: Protective sensation grossly intact to bilateral lower extremities MSK: Moderate tenderness on range of motion and palpation of the right 1st Metatarsal-phalangeal joint. Assessment & Plan Assessment & Plan (1) Cellulitis of right foot: Code(s): L03.115 - Cellulitis of right lower limb Category: Medical Plan: * Discussed the etiology of his right foot infection, likely secondary to a bug bite given the history of a pustule on his foot/ankle that is no longer present. * Referred for right foot/ankle x-rays. Patient will require a right foot MRI to rule out deeper involvement of his infection and to rule out R 1st MTP joint involvement. Will consider 1st MTP joint aspiration if joint symptoms do not resolve with new antibiotic (Bactrim). * Referred to ID clinic for potential outpatient infusion if he fails oral antibiotics. * Rx Bactrim DS * The right foot cellulitis was marked using a skin marker. instructed to present to the ER if the infection worsens or spreads beyond the border, and if he notices systemic signs of infection includin N/V/F/C/SOB/CP. * Applied lidia bandage to right lower extremity to decrease edema. * Follow up in 3 days. Orders: Orders MR foot RT wo/w con Today L03.119 - Cellulitis of unspecified part of limb XR foot RT min 3V Today L03.119 - Cellulitis of unspecified part of limb XR ankle RT min 3V Today L03.115 - Cellulitis of right lower limb Referrals Infectious Disease Referral L03.115 - Cellulitis of right lower limb Medications: New sulfamethoxazole-trimethoprim 800-160 mg (Bactrim DS) Take 1 pill twice a day. 1 tab PO BID 30 tabs 0RF right foot cellulitis L03.115 - Cellulitis of right lower limb Coding Level of Care Code New Pt Level 4 (52099) Diagnoses Cellulitis of right foot L03.115 Time Spent (min) 45
[2025-01-03 14:49] VITALS: BMI 27.4
== END 2025-01-03 15:14 | disposition home or self-care (01) ==
LOC: HO.HPODS 14:38
PROVIDERS: Visit Provider Student in an Organized Health Care Education/Training Program
DX: L03.115 Cellulitis of right lower limb (principal)
CPT/HCPCS: 99204

== ENCOUNTER → 2025-01-03 14:37 | Outpatient (BNVA) | payer MEDICARE, SELFPAY | PROVIDERS: Visit Provider Student in an Organized Health Care Education/Training Program | DX: L03.115 Cellulitis of right lower limb (principal) | CPT/HCPCS: 99202 ==

== ENCOUNTER 2025-01-10 14:22 | Outpatient (AMB) | payer MEDICARE, SELFPAY ==
[2025-01-10 14:32] VITALS: BMI 27.4
--- NOTE | 2025-01-10 14:32 | A.OFFVIS_ITS ---
Vital Signs 01/10/25 14:32 Height 5 ft 8 in Weight 180 lb BMI 27.4 Intake Visit Reasons: fu toe cellulitis Intake Note: janusz is a 74 year old male who presents today for a follow up on his cellulites of his right foot. During his last visit he was provided with a post op shoe and he was prescribed antibiotics. Patient reports he has seen slight improvement in regards to the swelling, and skin redness. Patient reports he would like to discuss how long it takes for his cellulites to heal. Allergies No Known Allergies Allergy (Verified 01/10/25 14:33) HPI HPI fu toe cellulitis: Details: 74-year-old male no past medical history presents for 1 week follow up evaluation of right foot and ankle infection. He notes improvement in his swelling and pain. The patient started the oral antibiotics prescribed last visit the same day, no issues so far. He is also taking a probiotic with it. He has not been applying the Lidia bandage. He attempted a compression stocking however felt it to be too uncomfortable. History: The patient states that he first noticed a white spot on the side of his ankle on 12/25, after walking barefoot outdoors. He was seen at [facility] ER on 12/29 and was discharged on Keflex and doxycycline which the patient will be completing my tomorrow. He notes that the redness in his leg has subsided now to the level of the foot and ankle however he still has significant swelling, red discoloration to his foot, and pain to his big toe joint. Patient denies N/V/F/C/SOB/CP. PFSH Surgical History (Updated 04/28/24 @ 15:23 by Trinh Bagley CMA) Hx of appendectomy Social History Alcohol intake: current Alcohol type: beer Patient Tobacco Use Status: Never used Tobacco Advance Directives Date on File: 04/20/24 Current occupational status: retired Current occupation: right handed Review of Systems Const All systems reviewed & are unremarkable except as noted in HPI and below Physical Exam Vital Signs: BMI result Body Mass Index 27.4 Extrem Other: *Bilateral Lower Extremity Focused Exam Vascular: DP/PT 2/4, CFT<3s to all digits, mild increased warmth to the right foot, +1 pitting right foot edema. No ankle edema. Derm: Decreased, mild erythema to the dorsal right foot from the level of the distal lateral ankle to the base of the digits. Decreased but mild discoloration to right medial ankle and arch. Neuro: Protective sensation grossly intact to bilateral lower extremities MSK: No tenderness on range of motion and palpation of the right 1st Metatarsal-phalangeal joint. Assessment & Plan Assessment & Plan (1) Cellulitis of right foot: Code(s): L03.115 - Cellulitis of right lower limb Category: Medical Plan: * Discussed the etiology of his right foot infection, likely secondary to a bug bite given the history of a pustule on his foot/ankle that is no longer present. * Instructed the patient to receive his right foot and ankle x-rays. His MRI order still outstanding. If his symptoms improve, we may consider cancelling his MRI. * Complete Bactrim antibiotic prescribed last visit * Instructed to present to the ER if the infection worsens or spreads beyond the border, and if he notices systemic signs of infection includin N/V/F/C/SOB/CP. * Applied lidia bandage to right lower extremity to decrease edema. * Follow up in 1 week. Coding Level of Care Code Est Pt Level 3 (28151) Diagnoses Cellulitis of right foot L03.115 Time Spent (min) 25
== END 2025-01-10 14:48 | disposition home or self-care (01) ==
PROVIDERS: Visit Provider Student in an Organized Health Care Education/Training Program
DX: L03.115 Cellulitis of right lower limb (principal)
CPT/HCPCS: 99213

== ENCOUNTER 2025-01-10 14:22 | Outpatient (REF) | payer MEDICARE, SELFPAY ==
--- NOTE | ~2025-01-10 | XR_ITS ---
EXAMINATION: XR ANKLE, right CLINICAL INFORMATION: L03.115 - Cellulitis of right lower limb COMPARISON: None available. TECHNIQUE: AP, lateral, and mortise views lower extremity joint, ankle. FINDINGS: Ankle mortise is congruent. There is no widening of the syndesmosis. Talar dome is intact. There are small Achilles tendon and plantar fascial calcaneal enthesophyte(s). XR/XR ankle RT min 3V IMPRESSION: Unremarkable ankle x-ray. Electronically signed by: Ishmael Smart MD 01/10/2025 03:54 PM EST
--- NOTE | ~2025-01-10 | XR_ITS ---
EXAMINATION: XR FOOT, RIGHT CLINICAL INFORMATION: L03.119 - Cellulitis of unspecified part of limb COMPARISON: None available. TECHNIQUE: AP, lateral, and oblique views of the right foot. FINDINGS: There is moderate narrowing of the first MTP joint with subchondral sclerosis and osteophytes. There is also degenerative cystic change. There is likely soft tissue swelling around the first MTP joint. Moderate atherosclerotic calcifications are present. There are small calcaneal spurs at the plantar fascia and Achilles tendon attachments. No definite acute erosions are identified. XR/XR foot RT min 3V IMPRESSION: Moderate first MTP joint osteoarthritis. Suspected soft tissue swelling around the first MTP joint. Electronically signed by: Ishmael Smart MD 01/10/2025 03:53 PM [facility]
== END 2025-01-10 14:23 | disposition home or self-care (01) ==
LOC: HO.HMGCX 14:22
PROVIDERS: Visit Provider Student in an Organized Health Care Education/Training Program
DX: L03.115 Cellulitis of right lower limb (principal)
CPT/HCPCS: 73610; 73630; 99212

== ENCOUNTER → 2025-01-10 15:26 | Outpatient (BNV) | payer MEDICARE, SELFPAY | PROVIDERS: Visit Provider Radiology Diagnostic Radiology | DX: L03.115 Cellulitis of right lower limb (principal); M19.071 Primary osteoarthritis, right ankle and foot | CPT/HCPCS: 73610; 73630 ==

== ENCOUNTER 2025-01-15 18:16 | Inpatient (IN) | payer MEDICARE, SELFPAY ==
[2025-01-15] VITALS (7 sets, daily range): BP systolic 122–150; BP diastolic 58–78; PULSE 83–96; RESP 16–28; TEMP 36.9–38.5; O2SAT 95–100; BMI 27.4
--- NOTE | ~2025-01-15 | XR_ITS ---
CLINICAL HISTORY: infection osteo? 3 view right foot Comparison: CR/SR - XR FOOT 3 OR MORE VIEWS RIGHT - 01/10/2025 03:44 PM EST Findings: No acute osseous abnormality. No cortical erosions. Osteoarthritis of the 1st toe metatarsophalangeal joint. No radiopaque foreign body. IMPRESSION: No radiographic evidence for osteomyelitis. If there is persistent clinical concern, consider a MRI. This document has been electronically signed by: Stephy Marti MD on 01/16/2025 00:05:00
--- NOTE | ~2025-01-15 | XR_ITS ---
CLINICAL HISTORY: SOB 2 view chest x-ray. Comparison: None provided Findings: Heart size is normal. No consolidation or effusion. No acute fracture. The visualized upper abdomen is unremarkable. Impression: No acute cardiopulmonary process. This document has been electronically signed by: Stephy Marti MD on 01/15/2025 19:07:11
--- NOTE | ~2025-01-15 | CT_ITS ---
CLINICAL HISTORY: renal obstruction? has ANNE, signs of sepsis CT abdomen and pelvis without contrast Comparison: None provided Absence of IV contrast limits evaluation of the organs and vasculature. Findings: Lung bases: Small pericardial effusion. Aortic valve calcifications. Coronary artery calcifications. Subsegmental atelectasis of the right lobe. Liver: No focal lesions. No biliary ductal dilatation. Gallbladder: Noninflamed gallbladder. Spleen: Normal. Pancreas: Unremarkable. Adrenal glands: No nodules. Kidneys: No hydronephrosis. 5 mm nonobstructing stone in the right kidney. Pelvic organs: Normal. Peritoneum and Gastrointestinal: No bowel obstruction, pneumoperitoneum, or ascites. Colonic diverticulosis without acute diverticulitis. Lymph nodes: No lymphadenopathy. Vessels: Atherosclerosis. Bones and soft tissues: Small fat containing umbilical hernia. IMPRESSION: No acute CT findings of the abdomen or pelvis. This document has been electronically signed by: Stephy Marti MD on 01/15/2025 22:20:58
--- NOTE | 2025-01-15 18:25 | ED_ITS ---
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 Patient was seen by Podiatry 2 weeks ago after having been bitten by a suspect spider. The patient developed cellulitis, he has been on oral antibiotics, his progress has been followed by his industrial gas production operator. Patient developed chills, generalized malaise, shaking rigors with a cough, and poor oral intake over the past day. Patient states that the cellulitis over the right lower extremity seems to have improved. There are no open wounds of the right foot. Denies dysuria, nausea vomiting diarrhea, abdominal pain, chest pain or shortness of breath. No sick contacts with viral symptoms. No documented fever. Related Data Home Medications ?Medication ?Instructions ?Recorded ?Confirmed ibuprofen 200 mg capsule 400 mg PO Q8H PRN 05/14/24 Previous Rx's ?Medication ?Instructions ?Recorded cephalexin 500 mg capsule 500 mg PO Q8H #21 caps 12/29 doxycycline hyclate 100 mg capsule 100 mg PO BID 7 day s #14 caps 12/29/24 sulfamethoxazole 800 1 tab PO BID right foot cell ulitis 01/03/25 mg-trimethoprim 160 mg tablet #30 tabs (Bactrim DS) Allergies Allergy/AdvReac Type Severity Reaction Status Date / Time No Known Allergies Allergy Verified 01/15/25 18:28 Review of Systems 2 Review of Systems: Yes all other systems are reviewed and are negative Constitutional: Constitutional: Reports chills, Reports fatigue, Denies fever(s) and Reports malaise Cardiovascular: Cardiovascular: Denies chest pain and Denies dyspnea Respiratory: Respiratory: Reports cough, Denies dyspnea and Denies wheezing Gastrointestinal: Gastrointestinal: Denies abdominal pain, Denies diarrhea, Denies nausea and Denies vomiting Genitourinary: Genitourinary: Denies dysuria Endocrine: Endocrine: Reports fatigue Allergic/Immunologic: Allergic/Immunologic: Denies wheezing PMFSH Past Medical History Attestation statement: The following information was validated with the patient. Surgical History (Updated 04/28/24 @ 15:23 by Trinh Bagley CMA) Hx of appendectomy Social History Social History Alcohol intake: current Alcohol intake frequency: does not drink Alcohol type: beer Patient Tobacco Use Status: Never used Tobacco Smoked in Last 30 Days: No Use of substances other than those prescribed or required for medical reasons: No Advance Directives: Yes Advance Directives on File: Yes Advance Directives Date on File: 04/20/24 Current occupational status: retired Current occupation: right handed Physical Exam 2 Vital Signs: Vital Signs: Last Vital Signs Temp 101.3 F H 01/15/25 23:28 Pulse 90 01/16/25 00:01 Resp 27 H 01/16/25 00:01 BP 126/65 01/16/25 00:01 Pulse Ox 95 01/16/25 00:01 O2 Del Method Room Air 01/16/25 00:01 BMI result Body Mass Index 27.4 Const: Other: Alert Orientation/consciousness: patient oriented x3 Resp: Other: Basilar crackles right lung posterior cabrera no wheezing nonlabored respiration Cardio: Other: Normal peripheral perfusion Skin: Other: Warm dry no rash Neuro: Other: Walks with a an antalgic gait, it is supposed to use either a cane or a walker at baseline General: patient oriented x3, no focal motor deficits and CN's II-XI intact bilaterally Extrem: Other: Region of erythema over the dorsum of the right foot spans mid foot to just inferior to the ankle, no associated edema noted Psych: Other: Cooperative Course Course Course Narrative: Lorenawendy Gottlieb [employer] 01/15 1826 This is a rapid medical exam. Deferred additional HPI, ROS, PE to primary provider. 74 yo male healthy on an bactrim for right foot cellulitis, here with shortness of breath/fevers/chills, continued pain in foot. Had outpatient x-ray on 01/10 Will obtain labs, UA, CXR, viral testing VSS Reevaluation(s) Reevaluation #1: A 2040January 15, a sepsis focused exam was performed, the patient has a evidence of acute kidney injury, with the hyperkalemia, his initial lactic is elevated at 2.7, to note his vitals are currently stable, he is not febrile at this time, he is not tachycardic. Starting weight based IV fluid therapy, empiric ceftriaxone, blood cultures were also already collected. Time: 20:41 Reevaluation #2: Patient febrile to 100.2, repeat lactic 3.4, he has received his weight based IV fluid therapy, his vitals remained stable, his pressure is 141 ordered 64, he is not tachy, we will obtain a 3rd lactic before admitting, a sources yet to be identified. CT abdomen and pelvis came back in his negative, urine not infected, Reevaluation #3: Third lactic 1.0 Medications Administered Discontinued Medications Generic Name Dose Route Start Last Admin Trade Name Freq PRN Reason Stop Dose Admin Acetaminophen 975 mg 01/15/25 23:30 01/15/25 23:35 Acetaminophen 325 Mg Tablet PO 01/15/25 23:31 975 mg ONCE ONE Administration Lactated Ringer's 2,449.41 mls @ 2,449.41 mls/hr 01/15/25 20:41 01/15/25 22:29 Lr 30 ml/kg infuse over 1 hr (2449.41 ml) 01/15/25 21:40 Infused IV Infusion .Q1H ONE Ceftriaxone Sodium 2 gm/ 50 mls @ 100 mls/hr 01/15/25 20:41 01/15/25 21:30 Sodium Chloride IV 01/15/25 21:10 Infused ONCE ONE Infusion Calcium Gluconate 2 gm in 100 mls @ 50 mls/hr 01/15/25 20:42 01/15/25 23:16 Calcium Gluconate IV 01/15/25 22:41 Infused ONCE ONE Infusion Vancomycin HCl 1,500 mg/ 500 mls @ 333.333 mls/hr 01/15/25 23:09 01/15/25 23:30 Sodium Chloride IV 01/16/25 00:38 333.33 mls/hr ONCE ONE Administration Sodium Zirconium Cyclosilicate 5 gm 01/15/25 20:42 01/15/25 21:02 Sodium Zirconium Cyclosilicate 5 Gm Powd.Pack PO 01/15/25 20:43 5 gm ONCE ONE Administration Medical Decision Making Medical Decision Making MDM Narrative: 74-year-old male with no known comorbidities, 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 Patient was seen by Podiatry 2 weeks ago after having been bitten by a suspect spider. The patient developed cellulitis, he has been on oral antibiotics, his progress has been followed by his industrial gas production operator. Patient developed chills, generalized malaise, shaking rigors with a cough, and poor oral intake over the past day. Patient states that the cellulitis over the right lower extremity seems to have improved. There are no open wounds of the right foot. Denies dysuria, nausea vomiting diarrhea, abdominal pain, chest pain or shortness of breath. No sick contacts with viral symptoms. No documented fever. No known underlying comorbidities History: Per patient I have considered the following differential diagnoses: Sepsis, cellulitis, acute intra-abdominal pathology, obstructing ureteral stone that has infected, UTI, pneumonia, viral syndrome Plan: Sepsis is considered, at this point , initial screening labs are completed, the patient has a leukocytosis with left shift, he has a evidence of acute kidney injury, and hyperkalemia, his lactic is elevated as well, at 2.7, we will be initiating sepsis protocol. Adding on weight based IV fluid therapy, starting ceftriaxone. The patient states that the cellulitis has improved in his opinion, this may not be the source. A chest x-ray and viral panel obtained as well, adding on UA which we are collecting now. I am also scanning his abdomen. We will be giving Lokelma and calcium gluconate for the hyperkalemia that has mild. There were no overt EKG changes when EKG was obtained, isolated subtle peaked T V2 I have independently reviewed the following tests: Labs: Leukocytosis with left shift, not anemic, ANNE creatinine 1.66, mildly hyperkalemic at 5.4, patient appears dry, mild hyponatremia, 1st lactic 2.7, the 2nd 3.4, LFTs within normal limits, urine not infected, he is passing hematuria, viral panel negative. Third lactic 1.0 EKG: Sinus rhythm with PVCs, rate of 78, QTC 419, somewhat peaked Ts most evident V2, no ischemic changes Chest x-ray:Impression: No acute cardiopulmonary process. CT abdomen and pelvis:MPRESSION: No acute CT findings of the abdomen or pelvis. Appears to be atelectasis versus early pneumonia right lung base that was captured on CT, we will add on azithromycin for pneumonia coverage X-ray right foot:IMPRESSION: No radiographic evidence for osteomyelitis. If there is persistent clinical concern, consider a MRI. Added IV vanco for cellulitis coverage Lab Data 01/15/25 19:23 01/15/25 19:22 Labs: Lab Results 01/15/25 01/15/25 01/15/25 Range/Units 19:22 19:23 21:55 WBC 10.6 (4.8-10.8) X10*3/uL RBC 4.92 (4.60-5.80) X10*6/uL Hgb 15.3 (14.0-18.0) g/dl Hct 44.1 (42.0-52.0) % MCV 89.6 (80.0-98.0) fL MCH 31.1 (27.0-33.0) pg MCHC 34.7 (31.0-36.0) g/dl RDW 14.6 (11.0-16.0) % Plt Count 182 (160-400) X10*3/uL MPV 10.0 (9.4-12.4) fL Immature Gran % (Auto) 0.7 H (0.0-0.4) % Neut % (Auto) 84.2 H (45-73) % Lymph % (Auto) 5.6 L (20-40) % [place] % (Auto) 6.7 (2-11) % Eos % (Auto) 2.4 (0-4) % Baso % (Auto) 0.4 (0-2) % Lymph # (Auto) 0.6 L (1.2-4.9) X10*3/uL [place] # (Auto) 0.7 (0.1-1.2) X10*3/uL Eos # (Auto) 0.3 (0.0-0.4) X10*3/uL Baso # (Auto) 0.0 (0.0-0.2) X10*3/uL Abs Immat Gran (auto) 0.07 H (0.00-0.03) X10*3/uL Absolute Neuts (auto) 9.0 H (2.0-8.3) x10*3/uL Absolute Nucleated RBC 0.000 (0.0-0.012) X10*3/uL Nucleated RBC % (auto) 0.0 (0.0-0.2) /100WBC Sodium 132 L (135-145) mmol/L Potassium 5.4 H D (3.3-5.1) mmol/L Chloride 98 (96-108) mmol/L Carbon Dioxide 20 L (22-29) mmol/L Anion Gap 19 (12-20) BUN 23 H (9-16) mg/dL Creatinine 1.66 H (0.5-1.4) mg/dL Estim Creat Clear Calc 37.7 Estimated GFR 41 Random Glucose 135 H (60-115) mg/dL Lactic Acid 2.7 H* (0.5-2.0) mmol/L Lactic Acid F/U @ 2Hr (0.5-2.0) mmol/L Calcium 9.4 (8.4-10.2) mg/dL Total Bilirubin 1.1 H (0.0-1.0) mg/dL Direct Bilirubin 0.3 (0.0-0.5) mg/dL AST 37 (5-37) U/L ALT 23 (0-40) U/L Alkaline Phosphatase 80 (39-117) U/L Total Protein 8.2 H (6.5-8.0) g/dL Albumin 4.6 (3.5-5.0) g/dL Urine Color Dark Yellow Urine Appearance Clear Urine pH 6.5 (5.0-9.0) Ur Specific [place] 1.020 (1.005-1.025) Urine Protein Trace (Neg-Trace) mg/dL Urine Glucose (UA) Negative (Negative) mg/dL Urine Ketones 15 (Negative) mg/dL Urine Blood Small (1+) H (Negative) Urine Nitrite Negative (Negative) Ur Leukocyte Esterase Negative (Negative) Urine RBC 11-20 H (0-2) /HPF Urine WBC 0-5 (0-5) /HPF Ur Squamous Epith Cells 0-2 (0-2) /HPF Urine Bacteria None Seen (None Seen) Hyaline Casts 0-2 (0-2) /LPF Influenza Type A (PCR) NEGATIVE (Negative) Influenza Type B (PCR) NEGATIVE (Negative) RSV RNA Qual (PCR) NEGATIVE (Negative) SARS-CoV-2 RNA (RT-PCR) NEGATIVE (Negative) 01/15/25 01/16/25 Range/Units 22:25 00:55 WBC (4.8-10.8) X10*3/uL RBC (4.60-5.80) X10*6/uL Hgb (14.0-18.0) g/dl Hct (42.0-52.0) % MCV (80.0-98.0) fL MCH (27.0-33.0) pg MCHC (31.0-36.0) g/dl RDW (11.0-16.0) % Plt Count (160-400) X10*3/uL MPV (9.4-12.4) fL Immature Gran % (Auto) (0.0-0.4) % Neut % (Auto) (45-73) % Lymph % (Auto) (20-40) % [place] % (Auto) (2-11) % Eos % (Auto) (0-4) % Baso % (Auto) (0-2) % Lymph # (Auto) (1.2-4.9) X10*3/uL [place] # (Auto) (0.1-1.2) X10*3/uL Eos # (Auto) (0.0-0.4) X10*3/uL Baso # (Auto) (0.0-0.2) X10*3/uL Abs Immat Gran (auto) (0.00-0.03) X10*3/uL Absolute Neuts (auto) (2.0-8.3) x10*3/uL Absolute Nucleated RBC (0.0-0.012) X10*3/uL Nucleated RBC % (auto) (0.0-0.2) /100WBC Sodium (135-145) mmol/L Potassium (3.3-5.1) mmol/L Chloride (96-108) mmol/L Carbon Dioxide (22-29) mmol/L Anion Gap (12-20) BUN (9-16) mg/dL Creatinine (0.5-1.4) mg/dL Estim Creat Clear Calc Estimated GFR Random Glucose (60-115) mg/dL Lactic Acid 1.0 (0.5-2.0) mmol/L Lactic Acid F/U @ 2Hr 3.4 H* (0.5-2.0) mmol/L Calcium (8.4-10.2) mg/dL Total Bilirubin (0.0-1.0) mg/dL Direct Bilirubin (0.0-0.5) mg/dL AST (5-37) U/L ALT (0-40) U/L Alkaline Phosphatase (39-117) U/L Total Protein (6.5-8.0) g/dL Albumin (3.5-5.0) g/dL Urine Color Urine Appearance Urine pH (5.0-9.0) Ur Specific [place] (1.005-1.025) Urine Protein (Neg-Trace) mg/dL Urine Glucose (UA) (Negative) mg/dL Urine Ketones (Negative) mg/dL Urine Blood (Negative) Urine Nitrite (Negative) Ur Leukocyte Esterase (Negative) Urine RBC (0-2) /HPF Urine WBC (0-5) /HPF Ur Squamous Epith Cells (0-2) /HPF Urine Bacteria (None Seen) Hyaline Casts (0-2) /LPF Influenza Type A (PCR) (Negative) Influenza Type B (PCR) (Negative) RSV RNA Qual (PCR) (Negative) SARS-CoV-2 RNA (RT-PCR) (Negative) Critical Care Time Critical Care Time Critical Care Time: Yes Total Critical Care Time: 45 Attestation: I Jimena Swanson PA-C have personally performed 45 minutes of critical care time not including lines and procedures; acute kidney injury, hyperkalemia, sepsis, need for hospital admission Discharge Plan Discharge Clinical Impression: Sepsis, Cellulitis of right foot, Atelectasis of right lung, Acute kidney injury, Acute hyperkalemia Patient Disposition: Admitted As Inpatient Print Language: Lithuanian
[2025-01-15 19:35] LABS: MANUAL DIFF FLAG NO
[2025-01-15 19:36] LABS: Hematocrit 44.1 % (42.0-52.0); Hemoglobin 15.3 g/dl (14.0-18.0); Imm Gran Abs Auto 0.07 X10*3/uL (0.00-0.03); Imm Gran Pct Auto 0.7 % (0.0-0.4); Lymphocytes Absolute Auto 0.6 X10*3/uL (1.2-4.9); Mean Corpuscular HGB Conc 34.7 g/dl (31.0-36.0); Mean Corpuscular Hemoglobin 31.1 pg (27.0-33.0); Mean Corpuscular Volume 89.6 fL (80.0-98.0); NRBC Abs Auto 0.000 X10*3/uL (0.0-0.012); NRBC Pct Auto 0.0 /100WBC (0.0-0.2); Platelet Count 182 X10*3/uL (160-400); Red Blood Count 4.92 X10*6/uL (4.60-5.80); White Blood Count 10.6 X10*3/uL (4.8-10.8)
[2025-01-15 19:51] LABS: Alanine Aminotransferase 23 U/L (0-40); Albumin Level 4.6 g/dL (3.5-5.0); Alkaline Phosphatase 80 U/L (39-117); Anion Gap 19 (12-20); Aspartate Amino Transferase 37 U/L (5-37); Blood Urea Nitrogen 23 mg/dL (9-16); Calcium 9.4 mg/dL (8.4-10.2); Carbon Dioxide 20 mmol/L (22-29); Chloride 98 mmol/L (96-108); Creatinine Clr Calc Pharmacy 37.7; Estimated Glomerular Filt Rate 41; Potassium 5.4 mmol/L (3.3-5.1); Sodium 132 mmol/L (135-145); Total Protein 8.2 g/dL (6.5-8.0)
[2025-01-15 20:09] LABS: Resp Syncy Virus RNA Qual PCR NEGATIVE (Negative); SARS COV2 PCR INHOUSE NEGATIVE (Negative)
--- NOTE | 2025-01-15 20:42 | ECG_ITS ---
Test Reason : ELYTE ABNORMAL Blood Pressure : */* mmHG Vent. Rate : 78 BPM Atrial Rate : 78 BPM P-R Int : 166 ms QRS Dur : 90 ms QT Int : 368 ms P-R-T Axes : 10 -48 89 degrees QTcB Int : 419 ms Sinus rhythm with occasional Premature ventricular complexes Left axis deviation Nonspecific T wave abnormality Abnormal ECG No previous ECGs available Referred By: Jimena Swanson Electronically Signed By: FERNANDA GONZALEZ MD
[2025-01-15] MEDS: Calcium Gluconate/NaCl,Iso-Osm 2 GM/100 ML PLAST..BAG IV (21:02)
[2025-01-15 21:30] LABS: Reflex Lactate? Lactic Acid Added
[2025-01-15 22:14] LABS: Appearance Urine Clear; Glucose Urine UA Negative (Negative); PH 6.5 (5.0-9.0); Specific Gravity - Urine 1.020 (1.005-1.025); UMIC TRIGGER UACC YES
[2025-01-15 22:46] LABS: ~Lactic Acid-LAB USE ONLY 3.4 mmol/L (0.5-2.0)
[2025-01-16 00:01] VITALS: BP 126/65; PULSE 90; RESP 27; O2SAT 95
[2025-01-16 00:28] LABS: Reflex Lactate? 2 Y
[2025-01-16 02:25] VITALS: BP 110/50; PULSE 83; RESP 15; TEMP 36.8; O2SAT 95
--- NOTE | 2025-01-16 03:03 | PM.IMHP ---
History of Present Illness Date of Service: 01/16/25 Attending physician on admission: Tana Falcon Chief Complaint: Right foot pain Jhon Sandhu is a 74 years old man with no significant past medical history presents to the emergency department complaining of right foot pain, swelling and redness that started 1 month ago. He thinks that a spider by him in the affected area. He has been taking a course of Bactrim recently without significant improvement of symptoms. Prior to this he took doxycycline and cephalexin. The patient is a vague historian. He denied shortness on breath, cough or chills. However, his who was at bedside said that he has been coughing, experiencing chills and shortness on breath. He denied chest pain, headache, abdominal pain, nausea, vomiting or diarrhea. Patient denied tobacco smoking, alcohol abuse or illicit drug use. In the ED, he was found to have fever 101.3 and some tachypnea. Blood pressure and heart rate are stable. Oxygen saturation is normal on room air. Last BP is 110/50. There is no leukocytosis or left shifting. Lactic acid was elevated at 3.4 but normalized. Hemoglobin and platelets are normal. There is mild hyponatremia 132, mild hyperkalemia of 5.4 and CO2 of 20. BUN is 23 and creatinine 1.66. LFTs are essentially normal. UA showed microscopic hematuria. Viral testing for COVID-19, influenza RSV is negative. Abdominal pelvis CT scan without contrast is unremarkable. CXR is negative. Right foot x-ray showed no radiographic evidence of osteomyelitis. ED tx: LR 30 cc/kg, ceftriaxone 2 g IV, Lokelma 5 mg p.o., calcium gluconate 2 g IV, vancomycin 1,500 mg IV, acetaminophen 975 mg p.o., azithromycin 500 mg IV Review of Systems Review of Systems: All 12 systems were reviewed and normal except as noted in HPI. [facility] Surgical History (Updated 04/28/24 @ 15:23 by Trinh Bagley CMA) Hx of appendectomy Social History Alcohol intake: current Alcohol intake frequency: does not drink Alcohol type: beer Patient Tobacco Use Status: Never used Tobacco Smoked in Last 30 Days: No Use of substances other than those prescribed or required for medical reasons: No Advance Directives: Yes Advance Directives on File: Yes Advance Directives Date on File: 04/20/24 Current occupational status: retired Current occupation: right handed Meds Allergies Allergy/AdvReac Type Severity Reaction Status Date / Time No Known Allergies Allergy Verified 01/15/25 18:28 Active Medications: Current Medications Acetaminophen (Acetaminophen 325 Mg Tablet) 975 mg PO Q6H PRN PRN Reason: Pain, Mild 1-3,fever,headache Calcium Carbonate (Calcium Carbonate 750 Mg Tab.Chew) 750 mg PO Q4H PRN PRN Reason: Heartburn Enoxaparin Sodium (Enoxaparin Sodium 40 Mg/0.4 Ml Syringe) 40 mg SUBCUT Q24H [place] Ceftriaxone Sodium 1 gm/ (Sodium Chloride) 50 mls @ 100 mls/hr IV Q24H [place] Magnesium Hydroxide (Milk Of Magnesia 30 Ml Oral.Susp) 30 ml PO DAILY PRN PRN Reason: Constipation Melatonin (Melatonin 3 Mg Tablet) 6 mg PO BEDTIME PRN PRN Reason: Insomnia Pharmacy Consult (Consult Rx Vancomycin Dosing) 1 each MISCELLANE DAILY PRN PRN Reason: Consult order Sodium Chloride (0.9 % Sodium Chloride Flush 3 Ml Syringe) 3 ml IVFLUSH QSHIFT [facility] Home Medications ?Medication ?Instructions ?Recorded ?Confirmed ?Last Taken ?Type ibuprofen 200 mg capsule 400 mg PO Q8H PRN 05/14/24 Unknown History Physical Exam Vital Signs and Narrative: Vital Signs: Last Vital Signs Temp 98.2 F 01/16/25 02:25 Pulse 83 01/16/25 02:25 Resp 15 01/16/25 02:25 BP 110/50 L 01/16/25 02:25 Pulse Ox 95 01/16/25 02:25 O2 Del Method Room Air 01/16/25 02:25 BMI result Body Mass Index 27.4 General: Alert, oriented, in no acute distress. Cooperative. Afebrile. HEENT: Head normocephalic, atraumatic. PER, EOMI. Sclerae anicteric, conjunctiva clear. Neck: Supple, no lymphadenopathy, or JVD. Heart: RRR, no murmurs, rubs or gallops. Lungs: Clear to auscultation bilaterally. No wheezes, rales, or rhonchi. Normal respiratory effort. Abdomen: Soft, non tenderness, nondistended, normoactive bowel sounds. No hepatosplenomegaly, masses or masses. Extremities: Right foot: Dorsum: Diffuse erythema involving the midfoot and extending proximally toward the ankle; areas of petechial appearance red macules within the erythematous zone, purple marker lines present delineating erythema borders; toes with no visible ulceration, necrosis or gangrene, nails intact, no blistering, drainage or purulence. No skin breaks or open wounds. Distal pulses 2+. Skin: Warm/Dry. No pallor. No jaundice. Neurologic: Alert & oriented x4. Moving all extremities spontaneously. Normal speech. Psychological: Normal mood and affect. Thought process coherent. Results Labs 01/15/25 19:23 01/15/25 19:22 Labs: Laboratory Results - last 24 hr 01/15/25 01/15/25 01/15/25 19:22 19:23 21:55 MCV 89.6 MCH 31.1 MCHC 34.7 RDW 14.6 Plt Count 182 MPV 10.0 Immature Gran % (Auto) 0.7 H Neut % (Auto) 84.2 H Lymph % (Auto) 5.6 L [place] % (Auto) 6.7 Eos % (Auto) 2.4 Baso % (Auto) 0.4 Lymph # (Auto) 0.6 L [place] # (Auto) 0.7 Eos # (Auto) 0.3 Baso # (Auto) 0.0 Abs Immat Gran (auto) 0.07 H Absolute Neuts (auto) 9.0 H Absolute Nucleated RBC 0.000 Nucleated RBC % (auto) 0.0 Anion Gap 19 Estim Creat Clear Calc 37.7 Estimated GFR 41 Random Glucose 135 H Lactic Acid 2.7 H* Lactic Acid F/U @ 2Hr Calcium 9.4 Total Bilirubin 1.1 H Direct Bilirubin 0.3 AST 37 ALT 23 Alkaline Phosphatase 80 Total Protein 8.2 H Albumin 4.6 Urine Color Dark Yellow Urine Appearance Clear Urine pH 6.5 Ur Specific [place] 1.020 Urine Protein Trace Urine Glucose (UA) Negative Urine Ketones 15 Urine Blood Small (1+) H Urine Nitrite Negative Ur Leukocyte Esterase Negative Urine RBC 11-20 H Urine WBC 0-5 Ur Squamous Epith Cells 0-2 Urine Bacteria None Seen Hyaline Casts 0-2 Influenza Type A (PCR) NEGATIVE Influenza Type B (PCR) NEGATIVE RSV RNA Qual (PCR) NEGATIVE SARS-CoV-2 RNA (RT-PCR) NEGATIVE 01/15/25 01/16/25 22:25 00:55 MCV MCH MCHC RDW Plt Count MPV Immature Gran % (Auto) Neut % (Auto) Lymph % (Auto) [place] % (Auto) Eos % (Auto) Baso % (Auto) Lymph # (Auto) [place] # (Auto) Eos # (Auto) Baso # (Auto) Abs Immat Gran (auto) Absolute Neuts (auto) Absolute Nucleated RBC Nucleated RBC % (auto) Anion Gap Estim Creat Clear Calc Estimated GFR Random Glucose Lactic Acid 1.0 Lactic Acid F/U @ 2Hr 3.4 H* Calcium Total Bilirubin Direct Bilirubin AST ALT Alkaline Phosphatase Total Protein Albumin Urine Color Urine Appearance Urine pH Ur Specific [place] Urine Protein Urine Glucose (UA) Urine Ketones Urine Blood Urine Nitrite Ur Leukocyte Esterase Urine RBC Urine WBC Ur Squamous Epith Cells Urine Bacteria Hyaline Casts Influenza Type A (PCR) Influenza Type B (PCR) RSV RNA Qual (PCR) SARS-CoV-2 RNA (RT-PCR) Assessment and Plan (1) Acute kidney injury: Status: Acute (2) Acute hyperkalemia: Status: Acute (3) Sepsis: Qualifiers: Sepsis acute organ dysfunction status: with acute organ dysfunction Sepsis type: sepsis due to unspecified organism Severe sepsis acute organ dysfunction type: unspecified Severe sepsis shock status: without septic shock Qualified Code(s): A41.9 - Sepsis, unspecified organism; R65.20 - Severe sepsis without septic shock Status: Acute (4) Cellulitis of right foot: Status: Acute Plan Jhon Sandhu is a 74 y/o man who presents with: Sepsis secondary to right foot cellulitis ?insect bite; failed outpatient treatment. Continue empiric IV antibiotic therapy with ceftriaxone and vancomycin. IV fluids. Blood culture obtained -will follow results. Elevate extremity. Check tick-borne disease panel and CRP. Acute kidney injury, hyperkalemia and hyponatremia (SIADH), secondary to Bactrim. Hold Bactrim. Continue IV fluids. Continue to monitor renal function electrolytes. Acute lactic acidosis. Secondary to sepsis. Resolved. Hyperglycemia. Check Hgb A1c. Cough, mild pericardial effusion on CT + high-pitch holosystolic murmur. No evidence of pneumonia. No dyspnea. Normal O2 sats on RA. Antitussive meds. Check TTE. Microscopic hematuria. Urology referral needed upon discharge. Code status: Full DVT prophylaxis: Lovenox Patient will need hospitalization for at least 2 midnights for sepsis secondary to right foot cellulitis treatment with IV antibiotic therapy and IV fluids. This documentation was generated using dictation software; minor spreading or analytics analyst errors may be present. Quality Stroke Does the patient have a stroke diagnosis?: No VTE Prior VTE?: No VTE Risk Level:: Medical - moderate - high VTE Device Contraindication: Treatment Not Indicated VTE Drug Contraindication: N/A - Med Ordered
[2025-01-16 04:21] LABS: MANUAL DIFF FLAG NO
[2025-01-16 04:27] LABS: Hematocrit 38.3 % (42.0-52.0); Hemoglobin 12.8 g/dl (14.0-18.0); Imm Gran Abs Auto 0.03 X10*3/uL (0.00-0.03); Imm Gran Pct Auto 0.4 % (0.0-0.4); Lymphocytes Absolute Auto 0.9 X10*3/uL (1.2-4.9); Mean Corpuscular HGB Conc 33.4 g/dl (31.0-36.0); Mean Corpuscular Hemoglobin 31.3 pg (27.0-33.0); Mean Corpuscular Volume 93.6 fL (80.0-98.0); NRBC Abs Auto 0.000 X10*3/uL (0.0-0.012); NRBC Pct Auto 0.0 /100WBC (0.0-0.2); Platelet Count 149 X10*3/uL (160-400); Red Blood Count 4.09 X10*6/uL (4.60-5.80); White Blood Count 7.3 X10*3/uL (4.8-10.8)
[2025-01-16 04:38] LABS: Cholesterol 131 mg/dL (<200); HDL Cholesterol 38 mg/dL (>40); Triglycerides 109 mg/dL (<150)
[2025-01-16 04:43] LABS: Anion Gap 13 (12-20); Blood Urea Nitrogen 20 mg/dL (9-16); Calcium 8.6 mg/dL (8.4-10.2); Carbon Dioxide 19 mmol/L (22-29); Chloride 107 mmol/L (96-108); Creatinine Clr Calc Pharmacy 49.3; Estimated Glomerular Filt Rate 55; Potassium 3.8 mmol/L (3.3-5.1); Sodium 135 mmol/L (135-145)
[2025-01-16 04:59] LABS: Thyroid Stimulating Hormone 2.18 uIU/mL (0.32-4.0)
[2025-01-16 08:04] VITALS: BP 130/61; PULSE 93; RESP 22; TEMP 38; O2SAT 95
--- NOTE | 2025-01-16 08:07 | PHA.PROG ---
Admission Date/Time: January 16, 2025 01:24 Indication: Skin Weight in k.647 kg Adjusted body weight in Kg: [place]son body weight in Kg: Obesity Dosing Indication % IBW: Serum Creatinine - Last 168 Hours 01/15/25 01/16/25 19:22 04:16 Creatinine 1.66 H 1.27 Estimated CrCl and GFR - Last 168 Hours 01/15/25 01/16/25 19:22 04:16 Estim Creat Clear Calc 37.7 49.3 Estimated GFR 41 55 Vancomycin Loading Dose: 1500mg x 1 Current Vancomycin Dosing Regimen: 1250mg Q24H Vancomycin Monitoring using AUC goal of 400 - 600 range with trough as surrogate marker: 492 mg/L Date and Time for next Vancomycin Level to be drawn: 01/18 2100 Pharmacist Comments on Vancomycin Plan: Predicted trough of 14.8 mg/L Vancomycin dosing will take advantage of [employer] as a clinical decision support tool that uses Bayesian modeling to calculate individual patient's pharmacokinetic parameters and forecast the patient's drug concentration time course with the target goal AUC 24 range of 400 - 600 mg/L/hr.
--- NOTE | 2025-01-16 08:16 | HO.NURTONUR ---
PER MD: Jhon Sandhu is a 74 years old man with no significant past medical history presents to the emergency department complaining of right foot pain, swelling and redness that started 1 month ago. He thinks that a spider by him in the affected area. He has been taking a course of Bactrim recently without significant improvement of symptoms. Prior to this he took doxycycline and cephalexin. The patient is a vague historian. He denied shortness on breath, cough or chills. However, his who was at bedside said that he has been coughing, experiencing chills and shortness on breath. He denied chest pain, headache, abdominal pain, nausea, vomiting or diarrhea. Patient denied tobacco smoking, alcohol abuse or illicit drug use. In the ED, he was found to have fever 101.3 and some tachypnea. Blood pressure and heart rate are stable. Oxygen saturation is normal on room air. Last BP is 110/50. There is no leukocytosis or left shifting. Lactic acid was elevated at 3.4 but normalized. Hemoglobin and platelets are normal. There is mild hyponatremia 132, mild hyperkalemia of 5.4 and CO2 of 20. BUN is 23 and creatinine 1.66. LFTs are essentially normal. UA showed microscopic hematuria. Viral testing for COVID-19, influenza RSV is negative. Abdominal pelvis CT scan without contrast is unremarkable. CXR is negative. Right foot x-ray showed no radiographic evidence of osteomyelitis. ED tx: LR 30 cc/kg, ceftriaxone 2 g IV, Lokelma 5 mg p.o., calcium gluconate 2 g IV, vancomycin 1,500 mg IV, acetaminophen 975 mg p.o., azithromycin 500 mg IV PER RN: Alert and oriented Admit: osteomyelitis, IV ABX Meds: NS at 125 mL/hr No pain this morning Low grade fever, feels feverish, just gave him PO tyelnol Ate small amount of breakfast Pills whole with water, one at a time
[2025-01-16 08:56] VITALS: BMI 25.4
[2025-01-16 09:34] LABS: Reflex LDLD? No
[2025-01-16 10:03] VITALS: BP 113/56; PULSE 78; RESP 12; TEMP 36.6; O2SAT 95
--- NOTE | 2025-01-16 10:10 | PM.EVENT ---
Event Note Date of Service: 01/16/25 Event Note: Pt seen/examined. Erythema of leg is better per patient, no fever. Told me someone said he was developing PNA, CXR PNA, also had CT of abdomen, no PNA , but small pericardial effusion. Plan: Contineu Abx, proable change to PO Abx (Augment and Doxy) for DC tomorrow, echocardiogram to assess P. effusion. Time Spent With Patient Time: Total time managing care of this patient today ____ minutes.
--- NOTE | 2025-01-16 10:36 | PHA.MEDREC ---
Pharmacy Consult ? Medication Reconciliation Pharmacy has completed the medication reconciliation. Spoke to patient to confirm medication list.
[2025-01-16] MEDS: 0.9 % Sodium Chloride Flush 3 ML SYRINGE IVFLUSH ×2 (15:10→20:18)
[2025-01-16 15:15] VITALS: BP 115/57; PULSE 75; RESP 18; TEMP 37.1; O2SAT 95
[2025-01-16 19:42] VITALS: BP 134/63; PULSE 86; RESP 18; TEMP 36.9; O2SAT 94
[2025-01-17 02:57] VITALS: BP 141/82; PULSE 80; RESP 18; TEMP 36.3; O2SAT 95
[2025-01-17 06:47] LABS: Creatinine Clr Calc Pharmacy 71.2; Estimated Glomerular Filt Rate > 60
--- NOTE | 2025-01-17 07:00 | CA_ITS ---
Transthoracic Echocardiogram Amended Patient (Last, First, Middle): Jhon Sandhu, Gender: Male Date of : 1950 Age: 74 Procedure Date: 01/17/2025 Procedure Type: Transthoracic Echocardiogram Location: S3E Height: 172.72 cm Weight: 75.75 kg BSA: 1.89 m2 Heart Rate: 82 bpm BP: 141 / 82 mmHg Inventory Management Specialist: Referring MD: Tana Falcon MD Symptoms: SOB, high pitch murmur, pericardial effusion on CT Study Quality: Adequate ECG Rhythm: Sinus Conclusions: - The left ventricular systolic function is normal. The calculated ejection fraction is 62% by biplane method. - There is moderately increased left ventricular wall thickness. - There is moderate to severe aortic valve stenosis. Findings Left Ventricle Normal left ventricular cavity size. There is moderately increased left ventricular wall thickness. The left ventricular systolic function is normal. The calculated ejection fraction is 62% by biplane method. Evidence suggests grade I (mild) diastolic dysfunction. Wall Motion Rest Echo Findings The basal inferior segment is hypokinetic. Right Ventricle Normal right ventricular cavity size and systolic function. Atria Both atria are normal in size. Aortic Valve There is severe calcification of the aortic valve. There is moderate to severe aortic valve stenosis. The peak aortic velocity is 3.83 m/s with a calculated peak gradient of 59 mmHg. The mean gradient is 36 mmHg. The aortic valve area is 0.95 cm2. There is trace (trivial) aortic valve regurgitation. Dimensionless index 0.27. Mitral Valve The mitral valve appears normal. There is mild mitral valve regurgitation. There is no mitral valve stenosis. Pulmonic Valve The pulmonic valve is likely normal. Tricuspid Valve There is trace tricuspid valve regurgitation. There is no evidence of pulmonary hypertension. Great Vessels The asc aorta is normal in size. Venous The inferior vena cava is normal in size and collapses greater than 50% with inspiration. Pericardium/Pleural There is a small loculated pericardial effusion overlying the left ventricle. There are no definitive echocardiographic findings of tamponade physiology. Prior Study Comparison No prior study available for comparison. Measurements 2D Linear Measurements IVSd: 1.37 0.6-0.9/0.6-1.0 cm LVIDd: 3.87 3.9-5.3/4.2-5.9 cm LVIDd Index: 2.05 2.4-3.2/2.2-3.1 cm/m2 LVIDs: 2.42 2.0-3.6 cm LVPWd: 1.31 0.7-1.1 cm LA Diam: 3.40 2.7-3.8/3.0-4.0 cm LAIDs Index: 1.80 1.5-2.3 cm/m2 LV Mass: 231.97 67-162/88-224 g LV Mass Index: 122.74 43-95/49-115 g/m2 LVOT Diam: 2.10 3.0+(-)1.3 cm 2D Volumes LA Vol: 16.20 2D Systolic Function EF 4C: 61.20 >55% EF 2C: 59.90 >55% EF BiP: 61.70 >55% Mitral Valve MV Pk E: 0.78 MV PK A: 1.18 MV Decel Time: 167.00 E/A: 0.70 E'Lateral: 5.11 E'Medial: 4.57 E/E' Med: 17.10 E/E' Lat: 15.30 PHT: 49.00 MVA PHT: 4.49 Decel Coffey: 4.69 Aortic Valve AoV Pk Edison: 3.83 AoV Mn Edison: 2.83 AoV VTI: 0.82 AoV Pk Grad: 59.00 Aov Mn Grad: 36.00 JACKY Cont.VTI: 0.95 LVOT LVOT Pk Edison: 1.03 LVOT Mn Edison: 0.66 LVOT VTI: 0.22 LVOT Pk Grad: 4.00 LVOT Mn Grad: 2.00 LVOT Diam: 2.10 LVOT Area: 3.46 Diastolic Function MV Pk E: 0.78 MV Pk A: 1.18 E/A: 0.70 E'Medial: 4.57 E/E' Med: 17.10 E' Laterial: 5.11 E/E' Lat: 15.30 Right Ventricle TVS' Edison: 14.40 Tricuspid Valve TR Pk Edison: 2.02 TR Pk Grad: 16.00 RA Press: 8.00 RVSP: 24.00 Great Vessels Aorta Sinus of Valsalva: 3.00 2.0-3.5 cm Ao Asc: 3.40 2.1-3.4 cm Pulmonary Valve PV Pk Edison: 1.26 Peak PV Grad: 6.00 Updated in Other Vendor System with Status of Final Javier Linares MD electronically signed on 01/18/2025 3:47:01 PM with status of Final
[2025-01-17 07:51] VITALS: BP 139/69; PULSE 81; RESP 16; TEMP 36.7; O2SAT 96
[2025-01-17] MEDS: 0.9 % Sodium Chloride Flush 3 ML SYRINGE IVFLUSH (07:58)
[2025-01-17 09:10] LABS: MANUAL DIFF FLAG NO
[2025-01-17 09:15] LABS: Hematocrit 39.7 % (42.0-52.0); Hemoglobin 13.5 g/dl (14.0-18.0); Imm Gran Abs Auto 0.03 X10*3/uL (0.00-0.03); Imm Gran Pct Auto 0.4 % (0.0-0.4); Lymphocytes Absolute Auto 0.9 X10*3/uL (1.2-4.9); Mean Corpuscular HGB Conc 34.0 g/dl (31.0-36.0); Mean Corpuscular Hemoglobin 31.2 pg (27.0-33.0); Mean Corpuscular Volume 91.7 fL (80.0-98.0); NRBC Abs Auto 0.000 X10*3/uL (0.0-0.012); NRBC Pct Auto 0.0 /100WBC (0.0-0.2); Platelet Count 169 X10*3/uL (160-400); Red Blood Count 4.33 X10*6/uL (4.60-5.80); White Blood Count 7.4 X10*3/uL (4.8-10.8)
[2025-01-17 09:18] LABS: Anion Gap 15 (12-20); Carbon Dioxide 20 mmol/L (22-29); Chloride 104 mmol/L (96-108); Potassium 3.8 mmol/L (3.3-5.1); Sodium 135 mmol/L (135-145)
--- NOTE | 2025-01-17 09:27 | PM.DS ---
DS: Providers Provider Date of Service: 01/17/25 Date of admission: 01/16/25 01:24 Date of discharge: 01/17/25 Primary care physician: Sara Physician DS: Diagnosis Discharge Diagnosis (1) Acute kidney injury: Status: Acute (2) Acute hyperkalemia: Status: Acute (3) Sepsis: Status: Acute (4) Cellulitis of right foot: Status: Acute DS: Summary Hospital Course Hospital Course: Chief Complaint: Right foot pain Jhon Sandhu is a 74 years old man with no significant past medical history presents to the emergency department complaining of right foot pain, swelling and redness that started 1 month ago. He thinks that a spider by him in the affected area. He has been taking a course of Bactrim recently without significant improvement of symptoms. Prior to this he took doxycycline and cephalexin. The patient is a vague historian. He denied shortness on breath, cough or chills. However, his who was at bedside said that he has been coughing, experiencing chills and shortness on breath. He denied chest pain, headache, abdominal pain, nausea, vomiting or diarrhea. Patient denied tobacco smoking, alcohol abuse or illicit drug use. In the ED, he was found to have fever 101.3 and some tachypnea. Blood pressure and heart rate are stable. Oxygen saturation is normal on room air. Last BP is 110/50. There is no leukocytosis or left shifting. Lactic acid was elevated at 3.4 but normalized. Hemoglobin and platelets are normal. There is mild hyponatremia 132, mild hyperkalemia of 5.4 and CO2 of 20. BUN is 23 and creatinine 1.66. LFTs are essentially normal. UA showed microscopic hematuria. Viral testing for COVID-19, influenza RSV is negative. Abdominal pelvis CT scan without contrast is unremarkable. CXR is negative. Right foot x-ray showed no radiographic evidence of osteomyelitis. ED tx: LR 30 cc/kg, ceftriaxone 2 g IV, Lokelma 5 mg p.o., calcium gluconate 2 g IV, vancomycin 1,500 mg IV, acetaminophen 975 mg p.o., azithromycin 500 mg IV Hospital course: Patient was admitted and treated with Vancomycin and Ceftriaxone and have and has had rapid improvement, WBC were normal, no fever. Xray was unremarkable, erythema has markedly improved and will transition to oral Doxy for 7 days. Pt had ANNE with presenting creating of 1.66, Creatine 0.88 is now, ANNE likely from Bactrim. Pt had mild hyperkalemia on presentation 5.6, likely from hemolysis and bactrim, given lokelma and this has resolved. K is now 3.8. Time Attestation Discharge Coordination Time (in mins): 45 Quality: Safe Use of Opioids Does Pt have an Active Cancer Diagnosis on the Problem List?: No Quality: Stroke Does the patient have a stroke diagnosis?: No Physical Exam Vital Signs: Vital Signs: Last Vital Signs Temp 98.1 F 01/17/25 07:51 Pulse 81 01/17/25 07:51 Resp 16 01/17/25 07:51 BP 139/69 01/17/25 07:51 Pulse Ox 96 01/17/25 07:51 O2 Del Method Room Air 01/17/25 07:51 BMI result Body Mass Index 25.4 DS: Data Data Completed and Pending Labs on day of discharge: Laboratory Results - last 24 hr 01/17/25 05:59 WBC 7.4 RBC 4.33 L Hgb 13.5 L Hct 39.7 L MCV 91.7 MCH 31.2 MCHC 34.0 RDW 14.5 Plt Count 169 MPV 10.6 Immature Gran % (Auto) 0.4 Neut % (Auto) 75.7 H Lymph % (Auto) 11.5 L [place] % (Auto) 8.5 Eos % (Auto) 3.4 Baso % (Auto) 0.5 Lymph # (Auto) 0.9 L [place] # (Auto) 0.6 Eos # (Auto) 0.3 Baso # (Auto) 0.0 Abs Immat Gran (auto) 0.03 Absolute Neuts (auto) 5.6 Absolute Nucleated RBC 0.000 Nucleated RBC % (auto) 0.0 Hold Purple Top SEE NOTE Sodium 135 Potassium 3.8 Chloride 104 Carbon Dioxide 20 L Anion Gap 15 Creatinine 0.88 Estim Creat Clear Calc 71.2 Estimated GFR > 60 Preliminary micro results at discharge 01/15/25 19:22 Blood Culture - Preliminary Blood - Venous No growth after 24 hours. 01/15/25 19:22 Blood Culture - Preliminary Blood - Venous No growth after 24 hours. Discharge Plan Discharge Anticipated Discharge Date/Time: 01/17/25 09:41 Patient Disposition: Home, Self-Care Discharge Diagnosis: Cellulitis of the foot, ANNE, Referrals: Physician,None [Primary Care Provider, Medical] - 1 Week Discharge Medications: Discontinued sulfamethoxazole-trimethoprim [Bactrim DS] 800-160 mg tablet 1 tab PO BID Qty: 30 0RF Rx Instructions: Take 1 pill twice a day. Diet: Diabetic diet Activity on Discharge: As tolerated Stand Alone Forms: Patient Portal Discharge page Print Language: Divehi Care Plan Goals: recovery from sepsis, cellilitis of the foot and renal failure Health Concerns: Cellulitis of the foot ? spider bite Plan of Treatment: take Doxycyline as recommended and follow up with your Doctor Assessment: see above
--- NOTE | 2025-01-17 11:55 | MHC.CM.PN ---
pt lives is independent will not need services whendcd home n/s
--- NOTE | 2025-01-17 11:58 | MHC.CM.PN ---
pt dcd home self care
[2025-01-17 14:39] LABS: CDiff Gene PCR POSITIVE (Negative)
[2025-01-17 14:41] LABS: CDIFF Internal ctrl Dots and bkg OK (V); CDiff Toxin Negative (Negative)
[2025-01-18 10:36] LABS: E. coli EAEC Not Detected (Not Detect.); E. coli EPEC Not Detected (Not Detect.); E. coli ETEC Not Detected (Not Detect.); E. coli STEC Not Detected (Not Detect.); Shigella sp./EIEC Not Detected (Not Detect.)
[2025-01-18 21:08] LABS: A. Phagocytphilium DNA,RT-PCR NOT DETECTED (NOT DETECTED); Babesia Microti DNA, RT-PCR NOT DETECTED (NOT DETECTED); Borrelia Miyamotoi,DNA RT-PCR NOT DETECTED (NOT DETECTED); E.Chaffeensis DNA RT-PCR NOT DETECTED (NOT DETECTED); Lyme(Borrelia ssp)DNA RT-PCR NOT DETECTED (NOT DETECTED)
== END 2025-01-17 14:25 | disposition home or self-care (01) | DRG 872 ==
LOC: HO.ED 01-16 01:31 → HO.EDOVER 01-16 01:33 → HO.S3 01-16 07:50
PROVIDERS: Nurse Practitioner Family; Physician Assistant Medical; Admitting Provider Internal Medicine; Emergency Provider Emergency Medicine; Visit Provider Internal Medicine
DX: A41.9 Sepsis, unspecified organism (principal); L03.115 Cellulitis of right lower limb; N17.9 Acute kidney failure, unspecified; E87.21 Acute metabolic acidosis; E87.1 Hypo-osmolality and hyponatremia; R31.29 Other microscopic hematuria; E87.5 Hyperkalemia
CPT/HCPCS: 36415; 71046; 73630; 74176; 80048; 80051; 80061; 80076; 81001; 82565; 83036; 83605; 84443; 85025; 86140; 87040; 87324; 87468; 87469; 87478; 87484; 87493; 87507; 87637; 87798; 93005; 93306; 99285; J0456; J0613; J0696; J1650; J3374; J7120; Q9957

== ENCOUNTER → 2025-01-15 20:42 | Outpatient (BNV) | payer MEDICARE, SELFPAY | PROVIDERS: Admitting Provider Internal Medicine; Emergency Provider Emergency Medicine; Visit Provider Internal Medicine Cardiovascular Disease | DX: I49.3 Ventricular premature depolarization (principal) | CPT/HCPCS: 93010 ==

== ENCOUNTER 2025-01-16 01:24 | Outpatient (BNV) | payer MEDICARE, SELFPAY | END 2025-01-17 07:00 | PROVIDERS: Admitting Provider Internal Medicine; Emergency Provider Emergency Medicine; Visit Provider Internal Medicine | DX: I51.7 Cardiomegaly (principal); I35.0 Nonrheumatic aortic (valve) stenosis | CPT/HCPCS: 93306 ==

== ENCOUNTER → 2025-01-16 01:24 | Outpatient (BNV) | payer MEDICARE, SELFPAY | PROVIDERS: Admitting Provider Internal Medicine; Emergency Provider Emergency Medicine; Visit Provider Internal Medicine | DX: A41.9 Sepsis, unspecified organism (principal); R65.20 Severe sepsis without septic shock; L03.115 Cellulitis of right lower limb; N17.9 Acute kidney failure, unspecified; E87.5 Hyperkalemia; R31.21 Asymptomatic microscopic hematuria | CPT/HCPCS: 99222; 99499 ==

== ENCOUNTER 2025-01-18 13:38 | Outpatient (AMB) | payer MEDICARE, SELFPAY ==
--- NOTE | 2025-01-18 14:00 | MHC.OFFVIS ---
Vital Signs 01/18/25 14:01 Height 5 ft 8 in Weight 167 lb BMI 25.4 Intake Visit Reasons: fu toe cellulitis Intake Note: Jhon is a 74 year old male who presents today for a follow up on his Right foot cellulites. At his last visit X-rays where ordered, an Beka wrap was applied, and he was advised to complete his Bactrim medication. Patient reports his cellulites has improved since his last visit. His mentions that he was released from the hospital yesterday and he was diagnosed with sepsis, cellulites of the foot, and renal failure. Allergies No Known Allergies Allergy (Verified 01/18/25 14:02) HPI HPI fu toe cellulitis: Details: 74-year-old male no past medical history presents for 1 week follow up evaluation of right foot and ankle infection. Over the weekend, he started experiencing malaise, lethargy, shortness of breath, and shows. He was admitted and found to have a fever, hyperkalemia and ANNE. He stopped the bactrim at that point and was on IV antibiotic medication in the hospital. He was then discharged on keflex/doxycycline which he will complete by this weekend. He states that he overall has not noticed any swelling redness or pain to his leg since even prior to the admission. History: The patient states that he first noticed a white spot on the side of his ankle on 12/25, after walking barefoot outdoors. He was seen at [facility] ER on 12/29 and was discharged on Keflex and doxycycline which the patient will be completing my tomorrow. He notes that the redness in his leg has subsided now to the level of the foot and ankle however he still has significant swelling, red discoloration to his foot, and pain to his big toe joint. Patient denies N/V/F/C/SOB/CP. PFSH Surgical History Hx of appendectomy Social History Household Members: Spouse Housing: House Alcohol intake: current Alcohol intake frequency: does not drink Alcohol type: beer Patient Tobacco Use Status: Never used Tobacco Advance Directives Date on File: 04/20/24 service: No Current occupational status: retired Current occupation: right handed Review of Systems Const All systems reviewed & are unremarkable except as noted in HPI and below Physical Exam Vital Signs: BMI result Body Mass Index 25.4 Extrem Other: *Bilateral Lower Extremity Focused Exam Vascular: DP/PT 2/4, CFT<3s to all digits, temperature gradient warm to cool, no pedal or ankle edema to the right lower extremity. Derm: No erythema or discoloration to the right lower extremity. Neuro: Protective sensation grossly intact to bilateral lower extremities MSK: No tenderness on range of motion and palpation of the right 1st Metatarsal-phalangeal joint. Right first Metatarsal-phalangeal joint range of motion approximately 5 degrees Assessment & Plan Assessment & Plan (1) Cellulitis of right foot: Code(s): L03.115 - Cellulitis of right lower limb Category: Medical Plan: Cellulitis appears to have resolved Instructed to complete his oral antibiotics as scheduled Follow up in 2 weeks Coding Level of Care Code Est Pt Level 3 (00264) Diagnoses Cellulitis of right foot L03.115 Time Spent (min) 20
[2025-01-18 14:01] VITALS: BMI 25.4
== END 2025-01-18 14:15 | disposition home or self-care (01) ==
LOC: HO.HPODS 13:39
PROVIDERS: Visit Provider Student in an Organized Health Care Education/Training Program
DX: L03.115 Cellulitis of right lower limb (principal)
CPT/HCPCS: 99213

== ENCOUNTER → 2025-01-18 13:38 | Outpatient (BNVA) | payer MEDICARE, SELFPAY | PROVIDERS: Visit Provider Student in an Organized Health Care Education/Training Program | DX: L03.115 Cellulitis of right lower limb (principal) | CPT/HCPCS: 99212 ==

== ENCOUNTER 2025-02-03 15:02 | Outpatient (AMB) | payer MEDICARE, SELFPAY ==
[2025-02-03 15:12] VITALS: BMI 25.2
--- NOTE | 2025-02-03 15:12 | A.OFFVIS_ITS ---
Vital Signs 02/03/25 15:12 Height 5 ft 8 in Weight 166 lb BMI 25.2 Intake Visit Reasons: fu toe cellulitis Intake Note: Jhon is a 74 year old male who presents to the office today for a follow up toe cellulitis. Pt finished his course of antibiotics and states he is overall doing well. Accompanied by: Spouse Allergies No Known Allergies Allergy (Verified 02/03/25 15:13) HPI HPI fu toe cellulitis: Details: 74-year-old male no past medical history presents for 1 week follow up evaluation of right foot and ankle infection. Patient states he no longer has any pain or red discoloration to his right lower extremity. He does note occasional swelling to his leg, worst when he ambulates. History: The patient states that he first noticed a white spot on the side of his ankle on 12/25, after walking barefoot outdoors. He was seen at [facility] on 12/29 and was discharged on Keflex and doxycycline which the patient will be completing my tomorrow. He notes that the redness in his leg has subsided now to the level of the foot and ankle however he still has significant swelling, red discoloration to his foot, and pain to his big toe joint. Patient denies N/V/F/C/SOB/CP. PFSH Surgical History Hx of appendectomy Social History Household Members: Spouse Housing: House Alcohol intake: current Alcohol intake frequency: does not drink Alcohol type: beer Patient Tobacco Use Status: Never used Tobacco Advance Directives Date on File: 04/20/24 service: No Current occupational status: retired Current occupation: right handed Review of Systems Const All systems reviewed & are unremarkable except as noted in HPI and below Physical Exam Vital Signs: BMI result Body Mass Index 25.2 Extrem Other: *Bilateral Lower Extremity Focused Exam Vascular: DP/PT 2/4, CFT<3s to all digits, temperature gradient warm to cool, mild right foot edema. Extensive varicosities to the right lower extremity. Derm: No erythema or discoloration to the right lower extremity. Neuro: Protective sensation grossly intact to bilateral lower extremities MSK: No tenderness on range of motion and palpation of the right 1st Metatarsal-phalangeal joint. Right first Metatarsal-phalangeal joint range of motion approximately 5 degrees Assessment & Plan Assessment & Plan (1) Cellulitis of right foot: Code(s): L03.115 - Cellulitis of right lower limb Category: Medical Plan: * Cellulitis has resolved * Patient completed antibiotics with no further recurrence of infection * Follow up as needed (2) Leg edema, right: Code(s): R60.0 - Localized edema Category: Medical Plan: * Explained that persistent right leg swelling can last for several weeks after infection. The patient also has underlying varicose veins. * Referred for right leg venous duplex * Referred to vein clinic Orders: Orders US venous duplex LE RT Today I83.91 - Asymptomatic varicose veins of right lower extremity, R60.0 - Localized edema Referrals Vascular Surgery Referral I83.90 - Asymptomatic varicose veins of unspecified lower extremity Coding Level of Care Code Est Pt Level 3 (84025) Diagnoses Cellulitis of right foot L03.115 Leg edema, right R60.0 Time Spent (min) 25
== END 2025-02-03 15:38 | disposition home or self-care (01) ==
LOC: HO.HPODS 15:03
PROVIDERS: Visit Provider Student in an Organized Health Care Education/Training Program
DX: L03.115 Cellulitis of right lower limb (principal); R60.0 Localized edema
CPT/HCPCS: 99213

== ENCOUNTER → 2025-02-03 15:02 | Outpatient (BNVA) | payer MEDICARE, SELFPAY | PROVIDERS: Visit Provider Student in an Organized Health Care Education/Training Program | DX: L03.115 Cellulitis of right lower limb (principal); R60.0 Localized edema | CPT/HCPCS: 99212 ==

== ENCOUNTER 2025-02-18 14:50 | Outpatient (REF) | payer MEDICARE, SELFPAY ==
[2025-02-18 18:56] LABS: MANUAL DIFF FLAG NO
[2025-02-18 19:01] LABS: Hematocrit 42.7 % (42.0-52.0); Hemoglobin 14.5 g/dl (14.0-18.0); Imm Gran Abs Auto 0.04 X10*3/uL (0.00-0.03); Imm Gran Pct Auto 0.6 % (0.0-0.4); Lymphocytes Absolute Auto 1.6 X10*3/uL (1.2-4.9); Mean Corpuscular HGB Conc 34.0 g/dl (31.0-36.0); Mean Corpuscular Hemoglobin 31.3 pg (27.0-33.0); Mean Corpuscular Volume 92.2 fL (80.0-98.0); NRBC Abs Auto 0.000 X10*3/uL (0.0-0.012); NRBC Pct Auto 0.0 /100WBC (0.0-0.2); Platelet Count 228 X10*3/uL (160-400); Red Blood Count 4.63 X10*6/uL (4.60-5.80); White Blood Count 7.0 X10*3/uL (4.8-10.8)
[2025-02-18 19:26] LABS: Alanine Aminotransferase 18 U/L (0-40); Albumin Level 4.4 g/dL (3.5-5.0); Alkaline Phosphatase 64 U/L (39-117); Anion Gap 11 (12-20); Aspartate Amino Transferase 27 U/L (5-37); Blood Urea Nitrogen 12 mg/dL (9-16); Calcium 9.1 mg/dL (8.4-10.2); Carbon Dioxide 29 mmol/L (22-29); Chloride 107 mmol/L (96-108); Cholesterol 201 mg/dL (<200); Estimated Glomerular Filt Rate > 60; HDL Cholesterol 47 mg/dL (>40); Magnesium 2.3 mg/dL (1.6-2.6); Potassium 4.2 mmol/L (3.3-5.1); Sodium 143 mmol/L (135-145); Total Protein 6.9 g/dL (6.5-8.0); Triglycerides 118 mg/dL (<150)
[2025-02-18 20:10] LABS: Folate 8.3 ng/mL (> or = 4.0); Vitamin B12 276 pg/mL (200-900)
[2025-02-21 03:51] LABS: Syphilis Screen Nonreactive (Nonreactive)
[2025-02-21 05:00] LABS: HBS Num1 0.00 mIU/mL (0-7.99); HBsAGNum1 0.35 S/CO (0.00-0.99); HIV Num 1 0.07 S/CO (0.00-0.99); Hepatitis B Surface Antigen Negative (Negative); ~HepC Num1 0.07 S/CO (0.00-0.79); ~Hepatitis B Surface Antibody NONREACTIVE (Nonreactive); ~Hepatitis C Antibody Nonreactive (Nonreactive)
[2025-02-22 16:28] LABS: Vitamin D 25-OH, D2 <4 ng/mL; Vitamin D 25-OH, D3 25 ng/mL; Vitamin D 25-OH, Total 25 ng/mL (30-100)
== END 2025-02-18 14:51 | disposition home or self-care (01) ==
LOC: HO.HKASLDS 14:50
PROVIDERS: PCP Student in an Organized Health Care Education/Training Program; Visit Provider Student in an Organized Health Care Education/Training Program
DX: Z13.9 Encounter for screening, unspecified (principal); I35.0 Nonrheumatic aortic (valve) stenosis; G47.00 Insomnia, unspecified; H61.20 Impacted cerumen, unspecified ear; I83.90 Asymptomatic varicose veins of unspecified lower extremity; K42.9 Umbilical hernia without obstruction or gangrene; E66.3 Overweight
CPT/HCPCS: 36415; 80053; 80061; 82306; 82607; 82746; 83036; 83735; 84443; 85025; 86706; 86780; 86803; 87340; 87389; 96127; 99202

== ENCOUNTER 2025-02-18 14:50 | Outpatient (AMB) | payer MEDICARE, SELFPAY ==
--- NOTE | 2025-02-18 14:56 | A.OFFPC_ITS ---
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 by: Spouse Allergies No Known Allergies Allergy (Verified 02/18/25 15:00) Medication List - Last Reconciled 02/19/25 by Dustin Garvin MD No Known Home Meds Tobacco use date assessed: 02/18/25 Fall risk assessment: 1 Fall in past year Last assessed Fall Risk: 02/18/25 Dental Screening Dental Screen Date: 02/18/25 Did you have a dental visit in the last 12 months?: No Did you have a dental problem in the last 6 months where you did not have access to dental care?: No Was dental information given to patient?: No HPI HPI Comments History of Present Illness Details History of Present Illness The patient is a 74 year old male presenting to [facility] with a primary care physician. Insomnia: The patient reports difficulty sleeping and sometimes remains awake until 6 or 7 in the morning. He also reports restless legs. His denies observing him snoring or gasping for air while asleep. The patient has never undergone a sleep study. Aortic Stenosis: A heart murmur was identified during a recent hospitalization. A transthoracic echocardiogram performed on 01/17 revealed an ejection fraction of 62%, moderately increased left ventricular wall thickness, and ztcdiwml-qh-qmeruh aortic valve stenosis. The patient is currently asymptomatic, denying dizziness or shortness of breath. He has a scheduled appointment with cardiology on March 14. Family History of Colon Cancer: The patient reports he has never had a colonoscopy. He has a significant family history, with his father and brother having had colon cancer and his sister having had polyps. Cerumen Impaction: The patient reports having wax in his ears. Varicose Veins of Lower Extremities: A gasoline power shovel operator, Dr. Buenrostro, previously informed the patient that the veins in his legs are not functioning as well as they used to. The patient was advised to wear compression stockings but he is non-compliant, stating they are difficult to put on, too tight, and cause pain. He has tried larger sizes without success. The ankle that was previously bitten for cellulitis still becomes swollen occasionally. Umbilical Hernia: The patient was not previously aware of having an umbilical hernia. It is asymptomatic and does not bother him. Surgical History: - No prior surgical history was reported . Medications: - The patient denies taking any prescrib ed medications. - The patient reports using occasional o nrc-mdp-pwdoqlo medications. - The patient's administered Imodiu m for his diarrhea following a recent hospitalization. Social History: - Substance Use: The patient denies smok ing or illicit drug use and reports occasional alcohol consumption (a beer now and then). - Marital Status: He has been fo r 50 years. - Employment History: He previously work ed at [employer] in a role that did not require a lot of standing. Family History: - Father had colon cancer. - Brother had colon cancer. - Sister had polyps. - Denies family history of prostate canc er. - Denies family history of thyroid issue s. Diagnostic Results: - Transthoracic echocardiogram (01/17): Revealed a left ventricular ejection fraction of 62%, moderately increased left ventricular wall thickness, and uggakzpv-oy-mprdlt aortic valve stenosis. Past Medical History - Arm fracture in April from a fall. - Hospitalization for cellulitis and sep sis secondary to a suspected spider bite on the ankle, which was treated with IV antibiotics. - History of antibiotic-associated diarr hea following the above hospitalization, which is now occasional. - The patient has not had a regular [facility] physician since the . - Varicose veins. Health Maintenance - The patient is a 74-year-old male esta [facility]. - Colon Cancer Screening: The patient reyes s never had a colonoscopy and is being referred for one due to his age and significant family history of colon cancer. - Baseline labs have been ordered. [facility] Medical History (Updated 02/19/25 @ 10:17 by Dustin Garvin MD) Family history of colon cancer Insomnia Surgical History Hx of appendectomy Social History (Updated 02/18/25 @ 15:02 by Lance Zhang CMA) Household Members: Spouse Housing: House Alcohol intake: current Alcohol intake frequency: does not drink Alcohol type: beer Patient Tobacco Use Status: Never used Tobacco e-Cigarette/Vaping Use: Never Used Second Hand Smoke Exposure: No Advance Directives Date on File: 04/20/24 service: No Current occupational status: retired Current occupation: right handed Cognitive needs: No Hearing needs: No Vision needs: No Questionnaire PHQ-9 Over the last 2 weeks, how often have you been bothered by any of the following problems? 1. Little interest or pleasure in doing things: not at all 2. Feeling down, depressed, or hopeless: not at all 3. Trouble falling or staying asleep, or sleeping too much: more than half the days 4. Feeling tired or having little energy: not at all 5. Poor appetite or overeating: not at all 6. Feeling bad about yourself - or that you are a failure or have let yourself or your family down: not at all 7. Trouble concentrating on things, such as reading the newspaper or watching television: not at all 8. Moving or speaking so slowly that other people could have noticed. Or the opposite - being so fidgety or restless that you have been moving around a lot more than usual: not at all 9. Thoughts that you would be better off or of hurting yourself in some way: not at all Total score: 2 Depression Screening Interpretation: Negative Depression Screening Done: Yes 68098 - PHQ-9 Billing: Yes Source: Developed by Drs. Walt Villarreal, Tracy Bagley, Evans Echols and colleagues, with an educational phong from [employer]. Thrive Questionnaire Date Thrive assessed: 02/18/25 I am a: Parent/Caregiver What is your living situation today?: I have a steady place to live Within the past 12 months, did the food you bought not last and you didn't have the money to get more?: Never true Within the past 12 months, did you worry whether your food would run out before you got money to buy more?: Never true Do you have trouble paying for medicines?: No Do you have trouble getting transportation to medical appointments?: No Do you have trouble paying your heating and electricity bill?: No Do you have trouble taking care of your child, family member or friend?: No Do you have trouble with day-to-day activities such as bathing, preparing meals, shopping, managing finances, etc.?: No Are you currently unemployed and looking for a job?: No Are you interested in more education?: No Please select the resources that you would like help with: None Currently or been in a relationship where the following occur: No concerns reported THRIVE Score: 0 AUDIT C Alcohol Use Questionnaire (AUDIT-C) 1. How often do you have a drink containing alcohol?: 2-4 times a month 2. How many drinks containing alcohol do you have on a typical day when you are drinking?: 1 or 2 3. How often do you have six or more drinks on one occasion?: Never Total Score: 2 ANDERSON-7 AMB Questionnaire ANDERSON-7 Date ANDERSON - 7 assessed: 02/18/25 Feeling nervous, anxious, or on edge: 0 = Not at all Not being able to stop or control worryin = Not at all Worrying too much about different things: 0 = Not at all Trouble relaxin = Not at all Being so restless that it is hard to sit still: 0 = Not at all Becoming easily annoyed or irritable: 0 = Not at all Feeling afraid as if something awful might happen: 0 = Not at all Total ANDERSON-7 score (0-4 normal; 5-9 mild; 10-14 moderate; 15-21 severe): 0 Source: Developed by Drs. Walt Villarreal, Tracy Bagley, Evans Echols and colleagues, with an educational phong from [employer]. ANDERSON-7 Assessment Billing ANDERSON-7 Assessment Tool: ANDERSON-7 Assessment 17821 Review of Systems Narrative Review of Systems - General: Reports feeling healthy and alright. - Neurological: Reports insomnia, sometimes staying awake until morning, and restless legs. - Respiratory: Denies snoring or gasping for air at night. - HEENT: Reports having wax in his ears. - Cardiovascular: Denies dizziness or shortness of breath. - Gastrointestinal: Reports occasional diarrhea. - Musculoskeletal: Reports intermittent swelling of the ankle previously affected by cellulitis. 10-point ROS reviewed and negative except as noted in HPI Physical exam (Primary Care) Vital Signs: Last Vital Signs Temp 98.1 F 02/18/25 15:03 Pulse 72 02/18/25 15:03 Resp 16 02/18/25 15:03 BP 111/56 L 02/18/25 15:03 Pulse Ox 96 02/18/25 15:03 Oxygen Delivery Method Room Air 02/18/25 15:03 BMI result Body Mass Index 26.7 Tobacco/Smoking Status: Tobacco use Status Tobacco use date assessed 02/18/25 02/18/25 15:03 Patient Tobacco Use Status Never used Tobacco 02/18/25 15:03 e-Cigarette/Vaping Use Never Used 02/18/25 15:03 PHQ-9: PHQ-9 Score PHQ-9: Total score 2 02/18/25 15:03 Depression Screening Interpretation: Negative Thrive Assessment: Date of Thrive Assessment Date Thrive assessed 02/18/25 02/18/25 15:03 Currently or been in a relationship where the following occur: No concerns reported Narrative Physical Exam General: Well-appearing, in no acute distress. Vital signs: Within normal limits. HEENT: Normocephalic, atraumatic. PERRLA, EOMI. Conjunctiva clear, sclera anicteric. Oropharynx clear, mucous membranes moist. TMs intact bilaterally. Noted earwax buildup. Neck: Supple, no lymphadenopathy, no thyromegaly, no JVD or carotid bruits. Cardiovascular: RRR, normal S1/S2, heart murmur present. Peripheral pulses 2+ and symmetric. No edema. Respiratory: Lungs clear to auscultation bilaterally, no wheezes, rales, or rhonchi. Normal effort. Abdomen: Soft, non-tender, non-distended. Normoactive bowel sounds. No hepatosplenomegaly, no masses. Umbilical hernia noted. MSK: Full range of motion, no joint swelling or deformity. Normal gait. Varicose veins noted on both legs. Skin: Warm, dry, intact. No rashes, lesions, or pallor. Neuro: Alert and oriented x3. Cranial nerves II-XII intact. Strength 5/5 throughout. Sensation intact. Reflexes 2+ symmetric. Normal coordination and gait. Psych: Appropriate mood and affect. Normal judgment and insight. Coding Level of Care Code New Pt Level 4 (99989) Add On Problem Visit Only Diagnoses Insomnia G47.00 Aortic stenosis I35.0 Cerumen impaction H61.20 Varicose veins of lower extremities without ulcer or inflammation I83.90 Umbilical hernia K42.9 Overweight (BMI 25.0-29.9) E66.3 Additional Codes ANDERSON-7 Assessment Billing - ANDERSON-7 Assessment Tool: ANDERSON-7 Assessment 55987 ([id number]) PHQ-9 - 50353 - PHQ-9 Billing: Yes ([id number]) Assessment & Plan Assessment & Plan (1) Insomnia: Code(s): G47.00 - Insomnia, unspecified Category: Medical (2) Aortic stenosis: Code(s): I35.0 - Nonrheumatic aortic (valve) stenosis Category: Medical (3) Cerumen impaction: Code(s): H61.20 - Impacted cerumen, unspecified ear Category: Medical (4) Varicose veins of lower extremities without ulcer or inflammation: Code(s): I83.90 - Asymptomatic varicose veins of unspecified lower extremity Category: Medical (5) Umbilical hernia: Code(s): K42.9 - Umbilical hernia without obstruction or gangrene Category: Medical (6) Overweight (BMI 25.0-29.9): Code(s): E66.3 - Overweight Category: Medical Plan Consent The patient provided verbal consent for a physical exam, including checking his ears, mouth, chest, lungs, and heart. Patient was informed and verbally consented to the use of an ambient scribe for clinic note documentation during this visit. Plan 1. Establishment Of Care / Preventive Care - A comprehensive lab panel was ordered, including a CBC, CMP, B12, vitamin D, folate, hepatitis B/C, HIV, syphilis, A1C, and lipid panel to establish a baseline of the patient's health. 2. Family History Of Colon Cancer - Due to the patient's age and significant family history (father and brother with colon cancer), a referral will be placed for a colonoscopy. 3. Insomnia - A sleep study will be ordered to determine the underlying cause of the patient's insomnia. - Caution was advised against using sedative medications due to the increased risk of falls in the elderly. - The patient was counseled on sleep hygiene, including maintaining a regular sleep routine, using the bedroom only for sleep, and avoiding caffeine and stimulating activities like using screens before bed. - It was suggested he could try OTC melatonin 10 mg, chamomile tea, valerian root tea, or reading a book to help relax before sleep. 4. Aortic Stenosis - The patient has an existing diagnosis of whxngxcz-fi-pnspxa aortic stenosis and is currently asymptomatic. - He has a scheduled cardiology appointment on March 14, and the plan is to await their evaluation and recommendations. 5. Cerumen Impaction - Debrox drops will be prescribed for the patient to use five drops, twice a day, for five days before his next visit to help break up the ear wax. 6. Varicose Veins Of Lower Extremities - The use of compression stockings was recommended to help with blood pooling in the lower extremities. - The patient's non-adherence due to discomfort was noted. 7. Umbilical Hernia - The umbilical hernia is asymptomatic and does not require intervention at this time. Discussion Notes I introduced myself to the patient, a 74-year-old male who presented with his to establish primary care. The patient provided verbal consent for a physical examination. I discussed ordering a comprehensive panel of baseline lab work. Regarding his chief complaint of insomnia, I recommended we start by ordering a sleep study to investigate the root cause rather than immediately prescribing sedative medication, citing the increased risk of falls in his demographic. I provided education on sleep hygiene practices and suggested he could try OTC melatonin 10 mg. Given his significant family history of colon cancer and that he has never been screened, I explained the need for a colonoscopy and will place a referral. I acknowledged the heart murmur found during his recent hospitalization and reviewed the echo findings of argflysh-pl-mcibme aortic stenosis. I explained that because he is currently asymptomatic, the appropriate next step is to follow up with his scheduled cardiology appointment. For the cerumen impaction, I instructed him on the use of Debrox drops before our next visit. I also discussed the finding of an asymptomatic umbilical hernia, which requires no immediate action. Finally, I reinforced the nathaly mmendation for him to wear compression stockings for his varicose veins, though he expressed non-compliance due to discomfort. Patient Instructions - Please go to the lab to have your blood drawn for the tests that were ordered. - A referral has been made for a colonoscopy. They will contact you to schedule the appointment. - A referral will be made for a sleep study to find out why you are having trouble sleeping. - In the meantime, you can try taking xrom-lci-hhxgccg melatonin 10 mg for sleep. - Practice good sleep habits, such as turning off the TV and other screens before bed and avoiding caffeine at night. - Keep your cardiology appointment on March 14 to follow up on your heart murmur. - A prescription for Debrox ear drops will be sent to your pharmacy. Place 5 drops in your ear twice a day for 5 days before your next appointment. - Continue to try wearing your compression stockings to help with the swelling and varicose veins in your legs. Medical Decision Making The patient is a 74-year-old male establishing primary care after a long absence from medical oversight. My approach focuses on establishing baseline health status, addressing his and his 's concerns, and initiating essential preventative care. The most clinically significant finding is the avoelinb-uv-byuuvq aortic stenosis, identified on a recent transthoracic echocardiogram. However, the patient is currently asymptomatic, which mitigates the immediate risk. Given his upcoming cardiology appointment, the prudent course of action is to defer management to the specialist. For his insomnia, I am taking a stepwise approach to avoid the risks associated with sedative-hypnotics in this age group, namely falls and subsequent fractures. The plan is to first investigate for an underlying sleep disorder, such as sleep apnea, with a sleep study, while concurrently implementing behavioral interventions (sleep hygiene) and a low-risk supplement (melatonin). Initiating colon cancer screening with a colonoscopy is a high priority due to his age and significant family history. Other findings, including the asymptomatic umbilical hernia, chronic varicose veins, and cerumen impaction, are less urgent and will be managed conservatively. Comprehensive lab work will provide a necessary baseline for ongoing health management. Total Time Statement 30 min Total time spent caring for the patient today includes pre-visit chart review, documentation, review of laboratory and diagnostic imaging results, medication reconciliation, medically necessary evaluation, counseling on diagnoses, care coordination, ordering appropriate tests and medications, review of tests performed by other providers, reporting test results to the patient, and communication with other healthcare providers. Orders: Orders Complete Blood Count Auto Diff 02/18/25 Z13.9 - Encounter for screening, unspecified Hepatitis B Surface Antigen 02/18/25 Z13.9 - Encounter for screening, unspecified Comprehensive Met. Panel 02/18/25 Z13.9 - Encounter for screening, unspecified TSH reflex Free T4 02/18/25 Z13.9 - Encounter for screening, unspecified Lipid Panel 02/18/25 Z13.9 - Encounter for screening, unspecified Magnesium 02/18/25 Z13.9 - Encounter for screening, unspecified Syphilis Screen 02/18/25 Z13.9 - Encounter for screening, unspecified Hepatitis C Antibody 02/18/25 Z13.9 - Encounter for screening, unspecified HIV Ab/Ag 02/18/25 Z13.9 - Encounter for screening, unspecified UA CC w/rflx Micro + Cult 02/18/25 Z13.9 - Encounter for screening, unspecified Vitamin B12 and Folate 02/18/25 Z13.9 - Encounter for screening, unspecified Hemoglobin A1c 02/18/25 Z13.9 - Encounter for screening, unspecified Hepatitis B Surface Antibody 02/18/25 Z13.9 - Encounter for screening, unspe cified Vitamin D 25-OH (D2 and D3) 02/18/25 Z13.9 - Encounter for screening, unspecified RT home sleep study 02/18/25 G47.00 - Insomnia, unspecified Referrals Open Access Screening Colonoscopy Referral Z12.11 - Encounter for screening for malignant neoplasm of colon, Z12.12 - Encounter for screening for malignant neoplasm of rectum
[2025-02-18 15:03] VITALS: BP 111/56; PULSE 72; RESP 16; TEMP 36.7; O2SAT 96; BMI 26.7
== END 2025-02-18 15:33 | disposition home or self-care (01) ==
LOC: HO.HMCFMS 14:51
PROVIDERS: Visit Provider Student in an Organized Health Care Education/Training Program
DX: G47.00 Insomnia, unspecified (principal); I35.0 Nonrheumatic aortic (valve) stenosis; H61.20 Impacted cerumen, unspecified ear; I83.90 Asymptomatic varicose veins of unspecified lower extremity; K42.9 Umbilical hernia without obstruction or gangrene; E66.3 Overweight